=== PATIENT | female | born 1965 | race Caucasian/White ===

== ENCOUNTER 2019-04-15 07:45 | Outpatient (CLI) | payer BC, SELFPAY ==
--- NOTE | ~2019-04-15 | MM_ITS ---
EXAMINATION: MM screening [facility] w [facility] HISTORY: Screening mammogram TECHNIQUE: Craniocaudal and mediolateral oblique 3-D tomosynthesis images were obtained and synthetic 2-D images were generated. CAD analysis was submitted and interpreted. COMPARISON: 04/13/2018, 04/11/2017, 04/07/2016 by lateral digital screening mammogram examinations BREAST PARENCHYMAL COMPOSITION: There are scattered areas of fibroglandular density. FINDINGS: There is no evidence of suspicious mass, calcification, or architectural distortion to sugg est malignancy in either breast. There has been no suspicious interval change. IMPRESSION: 1. No mammographic evidence of malignancy. 2. Recommend routine screening mammography in one year. BI-RADS Category 1: Negative Reviewed, dictated and finalized at location A. TRAINING SPECIALIST
== END 2019-04-15 07:46 | disposition home or self-care (01) ==
LOC: ANHIMG 07:50
PROVIDERS: PCP Internal Medicine; Visit Provider Internal Medicine
DX: Z12.31 Encounter for screening mammogram for malignant neoplasm of breast (principal)
CPT/HCPCS: 77063; 77067

== ENCOUNTER 2020-05-01 07:26 | Outpatient (CLI) | payer OTHER, SELFPAY ==
--- NOTE | ~2020-05-01 | MM_ITS ---
EXAMINATION: MM screening [facility] BI w alonso HISTORY: Screening mammogram TECHNIQUE: Craniocaudal and mediolateral oblique 3-D tomosynthesis images were obtained and synthetic 2-D images were generated. CAD analysis was submitted and interpreted. COMPARISON: 04/15/2019, 04/13/2018, 04/11/2017 BREAST PARENCHYMAL COMPOSITION: There are scattered areas of fibroglandular density. FINDINGS: There is no evidence of suspicious mass, calcification, or architectural distortion to sugg est malignancy in either breast. There has been no suspicious interval change. IMPRESSION: 1. No mammographic evidence of malignancy. 2. Recommend routine screening mammography in one year. BI-RADS Category 1: Negative Reviewed, dictated and finalized at location A. ACT ASSEMBLER
== END 2020-05-01 07:27 | disposition home or self-care (01) ==
LOC: ANHIMG 07:28
PROVIDERS: PCP Internal Medicine; Visit Provider Internal Medicine
DX: Z12.31 Encounter for screening mammogram for malignant neoplasm of breast (principal)
CPT/HCPCS: 77063; 77067

== ENCOUNTER 2021-11-29 08:31 | Outpatient (CLI) | payer OTHER, SELFPAY ==
[2021-11-29 19:06] LABS: Basophils Absolute Auto 0.1 K/mm3 (0.0-0.1); Basophils Percent Auto 1.4 % (0.2-1.2); Eosinophils Absolute Auto 0.2 K/mm3 (0-0.3); Eosinophils Percent Auto 3.8 % (0-4.4); Hematocrit 41.8 % (37.0-47.0); Hemoglobin 13.9 g/dL (12.0-15.0); Immature Granulocyte Absolute 0.02 K/mm3 (0.00-0.031); Immature Granulocyte Percent A 0.4 % (0-0.5); Lymphocytes Absolute Auto 2.13 K/mm3 (0.9-3.2); Lymphocytes Percent Auto 42.8 % (18.3-44.2); Mean Corpuscular HGB Conc 33.3 g/dl (32-36); Mean Corpuscular Hemoglobin 32.3 pg (26-34); Mean Platelet Volume 10.1 fl (7.4-10.4); Monocytes Absolute Auto 0.4 K/mm3 (0.1-0.6); Neutrophils Absolute Auto 2.2 K/mm3 (1.3-6.7); Neutrophils Percent Auto 43.6 % (45.5-73.1); Platelet Count Result 261 k/mm3 (150-375); Red Blood Count 4.31 M/mm3 (4.2-5.4); Red Cell Distribution Width 13.9 % (11.5-14.5)
[2021-11-29 19:25] LABS: Alanine Aminotransferase 20 U/L (6-35); Albumin Level 4.6 g/dL (3.5-5.1); Alkaline Phosphatase 88 U/L (38-126); Anion Gap 11 mmol/L (8-16); Aspartate Amino Transferase 36 U/L (14-36); Bilirubin,Total 0.7 mg/dL (0.2-1.3); Blood Urea Nitrogen 14 mg/dL (7-17); Calcium 9.3 mg/dL (8.4-10.2); Carbon Dioxide 28 mmol/L (22-30); Chloride 102 mmol/L (98-107); Cholesterol 248 mg/dL (0-200); Estimated Glomerular Filt Rate > 60; Glucose 108 mg/dL (65-110); HDL Direct 74 mg/dL; Potassium 4.1 mmol/L (3.4-5.0); Sodium 141 mmol/L (137-145); Triglycerides 75 mg/dL (<150)
[2021-11-29 19:45] LABS: LDL Cholesterol Direct 117 mg/dL
[2021-11-29 21:40] LABS: Vitamin D 25 Hydroxy 47.3 ng/mL
== END 2021-11-29 08:32 | disposition home or self-care (01) ==
LOC: ANHGOSHLAB 08:34
PROVIDERS: PCP Internal Medicine; Visit Provider Internal Medicine
DX: Z13.29 Encounter for screening for other suspected endocrine disorder (principal); Z13.0 Encounter for screening for diseases of the blood and blood-forming organs and certain disorders involving the immune mechanism; Z13.228 Encounter for screening for other metabolic disorders; Z13.220 Encounter for screening for lipoid disorders
CPT/HCPCS: 36415; 80053; 80061; 82306; 85025

== ENCOUNTER 2022-02-25 07:28 | Outpatient (CLI) | payer OTHER, SELFPAY ==
--- NOTE | ~2022-02-25 | MM_ITS ---
EXAMINATION: MM screening [facility] w [facility]onso HISTORY: Screening TECHNIQUE: Craniocaudal and mediolateral oblique 3-D tomosynthesis images were obtained and synthetic 2-D images were generated. CAD analysis was submitted and interpreted. COMPARISON: Comparison to multiple prior studies sequentially, with oldest reviewed study dated 03/23. BREAST PARENCHYMAL COMPOSITION: There are scattered areas of fibroglandular density. FINDINGS: There is no evidence of suspicious mass, calcification, or architectural distortion to sugg est malignancy in either breast. There has been no suspicious interval change. IMPRESSION: 1. No mammographic evidence of malignancy. 2. Recommend routine screening mammography in one year. BI-RADS Category 1: Negative Reviewed, dictated and finalized at location A. EL LINE OPERATOR
== END 2022-02-25 07:29 | disposition home or self-care (01) ==
LOC: ANHIMG 07:31
PROVIDERS: PCP Internal Medicine; Visit Provider Nurse Practitioner Obstetrics & Gynecology
DX: Z12.31 Encounter for screening mammogram for malignant neoplasm of breast (principal)
CPT/HCPCS: 77063; 77067

== ENCOUNTER 2023-03-03 08:18 | Outpatient (CLI) | payer OTHER, SELFPAY ==
[2023-03-03 13:27] LABS: Basophils Percent Auto 0.9 % (0.2-1.2); Eosinophils Absolute Auto 0.2 K/mm3 (0-0.3); Eosinophils Percent Auto 3.7 % (0-4.4); Hematocrit 41.6 % (37.0-47.0); Hemoglobin 13.3 g/dL (12.0-15.0); Lymphocytes Absolute Auto 2.05 K/mm3 (0.9-3.2); Lymphocytes Percent Auto 45.2 % (18.3-44.2); Mean Corpuscular Hemoglobin 31.1 pg (26-34); Mean Corpuscular Volume 97.4 fl (80-100); Mean Platelet Volume 10.1 fl (7.4-10.4); Monocytes Absolute Auto 0.4 K/mm3 (0.1-0.6); Neutrophils Absolute Auto 1.9 K/mm3 (1.3-6.7); Neutrophils Percent Auto 41.2 % (45.5-73.1); Platelet Count Result 256 k/mm3 (150-375); Red Blood Count 4.27 M/mm3 (4.2-5.4); Red Cell Distribution Width 13.7 % (11.5-14.5); White Blood Count 4.5 K/mm3 (4.5-10.0)
[2023-03-03 13:30] LABS: Alanine Aminotransferase 24 U/L (6-35); Albumin Level 4.5 g/dL (3.5-5.1); Alkaline Phosphatase 85 U/L (38-126); Anion Gap 8 mmol/L (8-16); Aspartate Amino Transferase 34 U/L (14-36); Bilirubin,Total 0.7 mg/dL (0.2-1.3); Blood Urea Nitrogen 16 mg/dL (7-17); Calcium 9.4 mg/dL (8.4-10.2); Carbon Dioxide 27 mmol/L (22-30); Chloride 105 mmol/L (98-107); Cholesterol 269 mg/dL (0-200); Estimated Glomerular Filt Rate > 60; Glucose 92 mg/dL (65-110); HDL Direct 90 mg/dL; Potassium 4.4 mmol/L (3.4-5.0); Sodium 140 mmol/L (137-145); Triglycerides 87 mg/dL (<150)
[2023-03-03 13:42] LABS: LDL Cholesterol Direct 126 mg/dL
[2023-03-03 14:23] LABS: Vitamin D 25 Hydroxy 31.3 ng/mL
== END 2023-03-03 08:19 | disposition home or self-care (01) ==
LOC: ANHGOSHLAB 08:19
PROVIDERS: PCP Internal Medicine; Visit Provider Clinical Nurse Specialist
DX: E55.9 Vitamin D deficiency, unspecified (principal); Z13.220 Encounter for screening for lipoid disorders; Z13.29 Encounter for screening for other suspected endocrine disorder; Z13.228 Encounter for screening for other metabolic disorders; Z13.0 Encounter for screening for diseases of the blood and blood-forming organs and certain disorders involving the immune mechanism
CPT/HCPCS: 36415; 80053; 80061; 82306; 85025

== ENCOUNTER 2023-06-06 09:22 | Outpatient (CLI) | payer OTHER, SELFPAY ==
--- NOTE | ~2023-06-06 | MM_ITS ---
EXAMINATION: MM screening [facility] w [facility] HISTORY: Screening TECHNIQUE: Craniocaudal and mediolateral oblique 3-D tomosynthesis images were obtained and synthetic 2-D images were generated. CAD analysis was submitted and interpreted. COMPARISON: Comparison to multiple prior studies sequentially, with oldest reviewed study dated 04/2016. BREAST PARENCHYMAL COMPOSITION: Dense: The breasts are heterogeneously dense, which may obscure small masses FINDINGS: There is no evidence of suspicious mass, calcification, or architectural distortion to sugg est malignancy in either breast. There has been no suspicious interval change. IMPRESSION: 1. No mammographic evidence of malignancy. 2. Recommend routine screening mammography in one year. BI-RADS Category 1: Negative Reviewed, dictated and finalized at location A.
== END 2023-06-06 09:23 | disposition home or self-care (01) ==
PROVIDERS: PCP Internal Medicine; Visit Provider Nurse Practitioner Obstetrics & Gynecology
DX: Z12.31 Encounter for screening mammogram for malignant neoplasm of breast (principal)
CPT/HCPCS: 77063; 77067

== ENCOUNTER 2024-03-17 11:18 | Emergency (ER) | payer BC, SELFPAY ==
--- NOTE | ~2024-03-17 | XR_ITS ---
XR chest 2V DATE: 03/17/2024 11:35 INDICATION: Shortness of breath TECHNIQUE: PA and lateral views COMPARISON: None FINDINGS: Normal heart size. No hilar or mediastinal enlargement. No pulmonary infiltrate or consolidation, pleural effusion or pulmonary vascular congestion or pneumo thorax is detected. Included skeletal structures are unremarkable other than minimal degenerative spurring and scoliosis of the thoracic spine. IMPRESSION: No active cardiopulmonary disease Reviewed, dictated and finalized at location A. Y CHILDHOOD AIDE CLASSROOM
[2024-03-17 11:21] VITALS: BP 115/79; PULSE 63; RESP 16; TEMP 36.4; O2SAT 100
--- NOTE | 2024-03-17 11:27 | ECG_ITS ---
Test Date: 2024-03-17 11:30:14 Measurements Intervals [place] Rate: 62 P: 67 WV: 153 QRS: -44 QRSD: 82 T: 59 QT: 428 QTc: 436 Interpretive Statements SINUS RHYTHM MARKED LEFT AXIS DEVIATION [QRS AXIS < -30] LOW QRS VOLTAGE IN PRECORDIAL LEADS [QRS DEFLECTION < 1.0 mV IN CHEST LEADS] PATTERN CONSISTENT WITH PULMONARY DISEASE Compared to ECG 03/17/2024 10:49:45 Low QRS voltage now present Electronically Signed On 03-17-2024 15:33:45 KNIT GOODS MENDER by Darek Pinto M.D.
[2024-03-17 11:37] LABS: Basophils Absolute Auto 0.1 K/mm3 (0.0-0.1); Basophils Percent Auto 0.9 % (0.2-1.2); Eosinophils Absolute Auto 0.1 K/mm3 (0-0.3); Eosinophils Percent Auto 2.2 % (0-4.4); Hematocrit 40.3 % (37.0-47.0); Hemoglobin 13.5 g/dL (12.0-15.0); Immature Granulocyte Absolute 0.01 K/mm3 (0.00-0.031); Immature Granulocyte Percent A 0.2 % (0-0.5); Lymphocytes Absolute Auto 2.38 K/mm3 (0.9-3.2); Lymphocytes Percent Auto 43.3 % (18.3-44.2); Mean Corpuscular HGB Conc 33.5 g/dl (32-36); Mean Corpuscular Hemoglobin 30.9 pg (26-34); Mean Corpuscular Volume 92.2 fl (80-100); Mean Platelet Volume 9.3 fl (7.4-10.4); Monocytes Absolute Auto 0.4 K/mm3 (0.1-0.6); Monocytes Percent Auto 7.6 % (2.6-8.5); Neutrophils Absolute Auto 2.5 K/mm3 (1.3-6.7); Neutrophils Percent Auto 45.8 % (45.5-73.1); Platelet Count Result 236 k/mm3 (150-375); Red Blood Count 4.37 M/mm3 (4.2-5.4); Red Cell Distribution Width 13.3 % (11.5-14.5); White Blood Count 5.5 K/mm3 (4.5-10.0)
[2024-03-17 11:56] LABS: Alanine Aminotransferase 19 U/L (6-35); Albumin Level 4.5 g/dL (3.5-5.1); Alkaline Phosphatase 86 U/L (38-126); Anion Gap 6 mmol/L (4-12); Aspartate Amino Transferase 24 U/L (14-36); Bilirubin,Total 0.7 mg/dL (0.2-1.3); Blood Urea Nitrogen 18 mg/dL (7-17); Carbon Dioxide 26 mmol/L (22-30); Chloride 106 mmol/L (98-107); Estimated CRCL calculation 66 ml/min; Estimated Glomerular Filt Rate > 60; Glucose 105 mg/dL (65-110); Potassium 4.2 mmol/L (3.4-5.0); Sodium 138 mmol/L (137-145)
--- NOTE | 2024-03-17 14:50 | ED.SOB ---
HPI - SOB/Dyspnea General Chief Complaint: Shortness of Breath/Dyspnea <Chari Forte PA-C - Last Filed: 03/17/24 22:46> Stated Complaint: sob <Chari Forte PA-C - Last Filed: 03/17/24 22:46> Time Seen by Provider: 03/17/24 14:50 <Chari Forte PA-C - Last Filed: 03/17/24 22:46> Focused HPI: This is a 58 year old female that presents to the ER for shortness of breath. Ongoing over the last several weeks. Worse with exertion. Became worse the last day or two which prompted her to be seen. She has not been evaluated for this complaint yet. Denies chest pain or lower extremity edema. GENERAL: Well-appearing, well-nourished, and in no acute distress. HEAD: Normocephalic, atraumatic. CHEST: Clear to auscultation. ?No respiratory distress. HEART: Regular rate and rhythm.? NEURO: ?Alert and oriented x3. Patient screened in triage and initial orders placed.? ?Additional care and disposition to be based upon?diagnostic testing and treatment. <Chari Forte PA-C - Last Filed: 03/17/24 22:46> Source: patient and other ([facility]) <Yanna Gibbons MD - Last Filed: 03/18/24 23:17> History of Present Illness HPI Narrative: Agree with the above with following additions/corrections: Notified in advance of patient's arrival by nurse practitioner at urgent care who notes the patient had been short of breath for the past 1 month although particularly worse over the last 2 days. Patient had described breathlessness to them particularly exertional but occasionally at rest. She was noted to be hypotensive at 92/70 at urgent care but with a heart rate of 60 beats per minute. They had performed an EKG which was interpreted as sinus rhythm. She was sent to the emergency department for evaluation of PE or symptomatic anemia; arrived by private vehicle. Patient states the shortness of breath has been occurring intermittently but seemed to get worse yesterday. She denies that it is particularly exertional as she states that it not infrequently occurs while at rest. No chest pain. Patient denies any cough or fever. She has no underlying respiratory conditions such as asthma, COPD, or history of pneumonia, or bronchitis. No history of cardiac issues. She does describe a sense of ear fullness bilaterally, like I have been on an airplane. She started wearing hearing aids in both ears a few months ago and did try removing these but without any change. Nevertheless, she denies any other symptoms of congestion leg nasal congestion or rhinorrhea. Denies any edema, bilaterally or unilaterally. Has a PCP. <Yanna Gibbons MD - Last Filed: 03/18/24 23:17> Related Data Home Medications: Home Medications ?Medication ?Instructions ?Recorded ?Confirmed ?Last Taken ?Type No Home Medications 03/13/23 03/17/24 Unknown History <Chari Forte PA-C - Last Filed: 03/17/24 22:46> Allergies/Adverse Reactions: Allergies Allergy/AdvReac Type Severity Reaction Status Date / Time No Known Allergies Allergy Verified 03/17/24 10:12 <Chari Forte PA-C - Last Filed: 03/17/24 22:46> Review of Systems Review of Systems: All systems reviewed & are unremarkable except as noted in HPI and below <Chari Forte PA-C - Last Filed: 03/17/24 22:46> [facility] Past Medical History Medical History: Medical History Wears hearing aid in both ears Lipoma removed Vitamin D deficiency <Chari Forte PA-C - Last Filed: 03/17/24 22:46> Surgical History Surgical History: Surgical History Delivery by section <Chari Forte PA-C - Last Filed: 03/17/24 22:46> Family History Family History: Family History Father Myocardial infarction Sibling Hydrocephalus <Chari Forte PA-C - Last Filed: 03/17/24 22:46> Social History Social History: Social History Smoking status: Never smoker Alcohol intake: never Do You Feel Safe in your Home?: Yes Lack of Transportation: No Lack of Food: Never True Current Housing: I Have Housing Concerned About Future Housing: No Difficulty Paying Gas/Electric Bills: No Difficulty Paying for Meds: No Currently Unemployed: No Education: Bachelor's Degree Difficulty w/ Childcare or Family Care: No <Chari Forte PA-C - Last Filed: 03/17/24 22:46> Exam Narrative: GENERAL: Well-appearing, well-nourished, and in no acute distress. HEAD: Normocephalic, atraumatic. EYES: Non injected, non icteric ENT: Nares clear, no rhinorrhea or epistaxis. Patient removes bilateral hearing aids briefly for exam: Cerumen on the left although it does not obscure the TM and appears to sit on a base of slight erythema in the external auditory canal. Small effusion behind the right tympanic membrane however without bulging or erythema. NECK: Supple. CHEST: Speaking in full sentences. No respiratory distress. Lungs clear to auscultation bilaterally without wheezes, crackles, or areas of focal consolidation. Good air movement throughout. No stridor. HEART: Regular rate and rhythm. . ABDOMEN: Soft, nondistended. EXTREMITIES: Normal range of motion. No lower extremity edema. SKIN: Warm, dry, no rash. NEURO: No focal deficits. Alert and oriented x3. PSYCH: Normal mood and affect. <Yanna Gibbons MD - Last Filed: 03/18/24 23:17> Course Vital Signs Vital signs: Vital Signs Temperature 97.5 F L 03/17/24 11:21 Pulse Rate 63 03/17/24 11:21 Respiratory Rate 16 03/17/24 11:21 Blood Pressure 115/79 03/17/24 11:21 Pulse Oximetry 100 03/17/24 11:21 Oxygen Delivery Room Air 03/17/24 11:21 Temperature 97.6 F 03/17/24 15:59 Pulse Rate 78 03/17/24 18:28 Respiratory Rate 15 03/17/24 18:28 Blood Pressure 109/76 03/17/24 18:28 Pulse Oximetry 100 03/17/24 18:28 Oxygen Delivery Room Air 03/17/24 15:59 <Chari Forte PA-C - Last Filed: 03/17/24 22:46> Vital Signs Temperature 97.5 F L 03/17/24 11:21 Pulse Rate 63 03/17/24 11:21 Respiratory Rate 16 03/17/24 11:21 Blood Pressure 115/79 03/17/24 11:21 Pulse Oximetry 100 03/17/24 11:21 Oxygen Delivery Room Air 03/17/24 11:21 Temperature 97.6 F 03/17/24 15:59 Pulse Rate 78 03/17/24 18:28 Respiratory Rate 15 03/17/24 18:28 Blood Pressure 109/76 03/17/24 18:28 Pulse Oximetry 100 03/17/24 18:28 Oxygen Delivery Room Air 03/17/24 15:59 <Yanna Gibbons MD - Last Filed: 03/18/24 23:17> MDM - SOB/Dyspnea MDM Narrative Medical decision making narrative: Patient presents with with shortness of breath occurring intermittently over the past 1 month with worsening over the past 1 day. No other symptoms except for bilateral ear fullness. No underlying respiratory conditions. In the emergency department she is afebrile with vital signs within normal limits. Physical exam is without obvious findings. Cbc unremarkable. Troponin negative, D dimer normal, viral swab negative. Patient does ambulatory pulse ox where she is noted to desaturate to 92% however without a clear wave form and patient stated that she was asymptomatic during this, feeling much better. We did discuss that her workup has not identified a clear etiology but recommended follow up with her PCP; she confirms she has one. Discharged in stable condition. <Yanna Gibbons MD - Last Filed: 03/18/24 23:17> Differential Diagnosis Differential diagnosis: Likely congestive heart failure, community acquired pneumonia, pulmonary embolism and other (Symptomatic anemia, pulmonary fibrosis/interstitial lung disease; pulmonary hypertension; acute viral syndrome; ACS) <Yanna Gibbons MD - Last Filed: 03/18/24 23:17> Lab Data Attestation: I reviewed the patient's lab results. <Yanna Gibbons MD - Last Filed: 03/18/24 23:17> Result diagrams: 03/17/24 11:31 03/17/24 11:31 <Chari Forte PA-C - Last Filed: 03/17/24 22:46> Labs: Lab Results 03/17/24 03/17/24 Range/Units 11:31 16:32 WBC 5.5 (4.5-10.0) K/mm3 RBC 4.37 (4.2-5.4) M/mm3 Hgb 13.5 (12.0-15.0) g/dL Hct 40.3 (37.0-47.0) % MCV 92.2 (80-100) fl MCH 30.9 (26-34) pg MCHC 33.5 (32-36) g/dl RDW 13.3 (11.5-14.5) % Plt Count 236 (150-375) k/mm3 MPV 9.3 (7.4-10.4) fl Immature Gran % (Auto) 0.2 (0-0.5) % Neut % (Auto) 45.8 (45.5-73.1) % Lymph % (Auto) 43.3 (18.3-44.2) % Coos % (Auto) 7.6 (2.6-8.5) % Eos % (Auto) 2.2 (0-4.4) % Baso % (Auto) 0.9 (0.2-1.2) % Lymph # (Auto) 2.38 (0.9-3.2) K/mm3 Coos # (Auto) 0.4 (0.1-0.6) K/mm3 Eos # (Auto) 0.1 (0-0.3) K/mm3 Baso # (Auto) 0.1 (0.0-0.1) K/mm3 Abs Immat Gran (auto) 0.01 (0.00-0.031) K/mm3 Absolute Neuts (auto) 2.5 (1.3-6.7) K/mm3 Absolute Nucleated RBC 0.000 (0.0-0.012) K/mm3 Nucleated RBC % 0.0 (0.0-0.2) % D-Dimer < 0.27 (<0.48) ug/mL Sodium 138 (137-145) mmol/L Potassium 4.2 (3.4-5.0) mmol/L Chloride 106 (98-107) mmol/L Carbon Dioxide 26 (22-30) mmol/L Anion Gap 6 (4-12) mmol/L BUN 18 H (7-17) mg/dL Creatinine 0.77 (0.7-1.0) mg/dL Estim Creat Clear Calc 66 ml/min Estimated GFR > 60 (59 - ) Glucose 105 (65-110) mg/dL Calcium 9.0 (8.4-10.2) mg/dL Total Bilirubin 0.7 (0.2-1.3) mg/dL AST 24 (14-36) U/L ALT 19 (6-35) U/L Alkaline Phosphatase 86 (38-126) U/L Troponin I < 0.012 (0.000-0.034) ng/mL NT-Pro-B Natriuret Pep 50 (19.9-100) pg/mL Total Protein 8.0 (6.3-8.2) g/dL Albumin 4.5 (3.5-5.1) g/dL Influenza A (RT-PCR) Negative (Negative) Influenza B (RT-PCR) Negative (Negative) RSV (RT-PCR) Negative (Negative) SARS-CoV-2 RNA (RT-PCR) Negative (Negative) <Chari Forte PA-C - Last Filed: 03/17/24 22:46> Lab Results 03/17/24 03/17/24 Range/Units 11:31 16:32 WBC 5.5 (4.5-10.0) K/mm3 RBC 4.37 (4.2-5.4) M/mm3 Hgb 13.5 (12.0-15.0) g/dL Hct 40.3 (37.0-47.0) % MCV 92.2 (80-100) fl MCH 30.9 (26-34) pg MCHC 33.5 (32-36) g/dl RDW 13.3 (11.5-14.5) % Plt Count 236 (150-375) k/mm3 MPV 9.3 (7.4-10.4) fl Immature Gran % (Auto) 0.2 (0-0.5) % Neut % (Auto) 45.8 (45.5-73.1) % Lymph % (Auto) 43.3 (18.3-44.2) % Coos % (Auto) 7.6 (2.6-8.5) % Eos % (Auto) 2.2 (0-4.4) % Baso % (Auto) 0.9 (0.2-1.2) % Lymph # (Auto) 2.38 (0.9-3.2) K/mm3 Coos # (Auto) 0.4 (0.1-0.6) K/mm3 Eos # (Auto) 0.1 (0-0.3) K/mm3 Baso # (Auto) 0.1 (0.0-0.1) K/mm3 Abs Immat Gran (auto) 0.01 (0.00-0.031) K/mm3 Absolute Neuts (auto) 2.5 (1.3-6.7) K/mm3 Absolute Nucleated RBC 0.000 (0.0-0.012) K/mm3 Nucleated RBC % 0.0 (0.0-0.2) % D-Dimer < 0.27 (<0.48) ug/mL Sodium 138 (137-145) mmol/L Potassium 4.2 (3.4-5.0) mmol/L Chloride 106 (98-107) mmol/L Carbon Dioxide 26 (22-30) mmol/L Anion Gap 6 (4-12) mmol/L BUN 18 H (7-17) mg/dL Creatinine 0.77 (0.7-1.0) mg/dL Estim Creat Clear Calc 66 ml/min Estimated GFR > 60 (59 - ) Glucose 105 (65-110) mg/dL Calcium 9.0 (8.4-10.2) mg/dL Total Bilirubin 0.7 (0.2-1.3) mg/dL AST 24 (14-36) U/L ALT 19 (6-35) U/L Alkaline Phosphatase 86 (38-126) U/L Troponin I < 0.012 (0.000-0.034) ng/mL NT-Pro-B Natriuret Pep 50 (19.9-100) pg/mL Total Protein 8.0 (6.3-8.2) g/dL Albumin 4.5 (3.5-5.1) g/dL Influenza A (RT-PCR) Negative (Negative) Influenza B (RT-PCR) Negative (Negative) RSV (RT-PCR) Negative (Negative) SARS-CoV-2 RNA (RT-PCR) Negative (Negative) <Yanna G. Gibbons, MD - Last Filed: 03/18/24 23:17> Imaging Data Radiologist's impression: ITS Impressions Chest X-Ray 03/17/24 11:45 IMPRESSION: No active cardiopulmonary disease <Chari Forte PA-C - Last Filed: 03/17/24 22:46> ECG Data EKG #1: Attestation: I personally reviewed and interpreted this ECG as follows: <Yanna Gibbons MD - Last Filed: 03/18/24 23:17> ECG completion date: 03/17/24 <Yanna Gibbons MD - Last Filed: 03/18/24 23:17> ECG completion time: 11:30 <Yanna Gibbons MD - Last Filed: 03/18/24 23:17> Interpretation: Normal sinus rhythm at a rate of 62 beats per minute. TX interval 153. QRS 82. QT/QTC 428/433. T-wave inversion in lead 3 but otherwise upright in normal in contiguous inferior leads 2 and AVF. No other T-wave inversions. Left axis deviation (QRS is positive with dominant R wave in Lead I; QRS is negative with dominant S wave in leads II, III, and aVF) given positive QRS in 1 and negative QRS in leads 3 and AVF and predominant negative in lead 2. <Yanna Gibbons MD - Last Filed: 03/18/24 23:17> Critical Care Time Critical Care Time Critical Care Time: No <Chari Forte PA-C - Last Filed: 03/17/24 22:46> Discharge Plan Discharge Clinical Impression: Sensation of fullness in both ears, Shortness of breath <HARRIET Fajardo Last Filed: 03/17/24 22:46> Patient Disposition: Home, Self-Care <Chari Forte PA-C - Last Filed: 03/17/24 22:46> Condition: Stable <HARRIET Fajardo Last Filed: 03/17/24 22:46> Instructions: Antibiotic Form, Earache (ED), Shortness of Breath (ED) <Chari Forte PA-C - Last Filed: 03/17/24 22:46> Additional Instructions: As we discussed, no clear etiology as cause of your symptoms. Please follow-up with your primary care physician. Return to the emergency department with any new or worsening symptoms. <Chari Forte PA-C - Last Filed: 03/17/24 22:46> Patient Language: Latvian <Chari Forte PA-C - Last Filed: 03/17/24 22:46> Prescriptions: No Action No Home Medications <Chari Forte PA-C - Last Filed: 03/17/24 22:46> Follow-up/Referrals: Juan Jose Ho, DO [Primary Care Provider] - <Chari Forte PA-C - Last Filed: 03/17/24 22:46> Stand Alone Forms: Work/School Release IP <Chari Forte PA-C - Last Filed: 03/17/24 22:46> Time of Disposition: 18:21 <Chari Forte PA-C - Last Filed: 03/17/24 22:46> 18:21 <Yanna Gibbons MD - Last Filed: 03/18/24 23:17>
[2024-03-17 15:59] VITALS: BP 108/73; PULSE 65; RESP 15; TEMP 36.4; O2SAT 100
[2024-03-17 16:44] VITALS: BP 109/75; PULSE 79; RESP 18; O2SAT 93
[2024-03-17 16:49] LABS: Troponin I < 0.012 ng/mL (0.000-0.034)
[2024-03-17 17:05] LABS: D Dimer < 0.27 ug/mL (<0.48)
[2024-03-17 17:12] LABS: NT Pro B Type Natriuretic Pept 50 pg/mL (19.9-100)
[2024-03-17 17:18] LABS: Influenza A QL RT-PCR Negative (Negative); Influenza B QL RT-PCR Negative (Negative); RSV RNA, RT-PCR Negative (Negative); SARS-CoV-2 RNA PCR Negative (Negative)
[2024-03-17 18:28] VITALS: BP 109/76; PULSE 78; RESP 15; O2SAT 100
== END 2024-03-17 18:29 | disposition home or self-care (01) ==
PROVIDERS: Emergency Medicine; Physician Assistant; Emergency Provider Student in an Organized Health Care Education/Training Program; PCP Internal Medicine
DX: R06.00 Dyspnea, unspecified (principal); I95.9 Hypotension, unspecified; Z20.822 Contact with and (suspected) exposure to COVID-19
CPT/HCPCS: 36415; 71046; 80053; 83880; 84484; 85025; 85380; 87637; 93005; 99284

== ENCOUNTER 2024-03-26 15:03 | Outpatient (CLI) | payer BC, SELFPAY ==
--- NOTE | ~2024-03-26 | CT_ITS ---
EXAMINATION:CT diagnostic chest w con DATE: 03/26/2024 15:34 INDICATION: Dyspnea, unspecified. TECHNIQUE: Computed tomography (CT) of the chest was performed with 75 mL Omnipaque 350 intravenous c ontrast. Automated exposure control and iterative reconstruction technique were employed. The dose-le ngth product (DLP) was 167.58 mGy-cm. COMPARISON: Chest 2 views 03/17/2024 FINDINGS: The lungs demonstrate mild atelectasis. No pleural effusion. The heart size is normal. No p ericardial effusion. There is ectasia of ascending aorta measuring 4.9 cm. There is mild thoracic spo ndylosis. IMPRESSION: 1. 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 Reviewed, dictated and finalized at location B. GER SOURCING
--- OUTSIDE RECORDS SUMMARY | 2024-03-28 19:30 | XMS_ITS | Data Portability ---
Author Organization [facility] Address [address] [place] [address] Care Team Providers Care Plating Technician Name Role Phone ACE BEAUCHAMP Primary Care Provider Assessment Encounter Date Assessment Date Assessment LastModified by Organization Details LastModified Time 12/16/2021 12/16/2021 Annual gynecological exam performed. Patient will come back in a year unless there are new symptoms. Not available 12/16/2021 15:23:40 12/23/2022 12/23/2022 Annual gynecological exam performed. Patient will come back in a year unless there are new symptoms. [email or web address] Not available 12/23/2022 13:24:10 12/26/2023 12/26/2023 Annual gynecological exam performed. Patient will come back in a year unless there are new symptoms. [email or web address] Not available 12/26/2023 17:22:41 Plan of Treatment Reminders Order Date Submit Date Provider Last Modified By Organization Details Last Modified Time Details Appointments None recorded. Lab hormone panel, serum or plasma 2021 022 [facility] (Lab), [address], [place], [address], 03:05:23 hormone panel, serum or plasma 2022 023 [facility] (Lab), [address], [place], [address], 3 06:56:22 Referral None recorded. Procedures None recorded. Surgeries None recorded. Imaging US, pelvis, complete 2021 022 [address], [address], [place], [address], 2 16:04:59 US, pelvis 2021 022 [email or web address] [address], [address], [place], [address], 2 22:18:15 US, transvagina l 2021 022 [email or web address] [facility], [address], [place], [address], 22:18:15 MAMMO, screening, bilateral [address] [facility], [address], [address], [place], [address], 3 10:26:04 Medication Orders None recorded. Patient TargetsNo targets recorded. Patient InstructionsNo instructions recorded. Reason for Referral None Reported. Results Created Date Observation Date Name Description Value Unit Range Abnormal Flag Note LastModifiedBy Organization Detail LastModifiedTime 12/17/1912/16/2021 FSH, LH, ESTRA DIOL estradiol <5.0 pg/mL This assay was perfo rmed using [employer] n reage nts and test kits. Value s obtai john with other assay metho ds or kits canno t be used inter [facility] . Femal e Estra diol Range s: Folli cular phase 12.4- 233 pg/mL Ovula tion phase 41.0- 398 pg/mL Lutea l phase 22.3- 341 pg/mL Postm enopa usal< 5-138 pg/mL Healt hy Pregn ant Women 1st Trime ster1 54-32 43 pg/mL 2nd Trime ster1 561-2 1280 pg/mL 3rd Trime ster8 525-> 20345 pg/mL Not Available [facility] [address] [place], [address], 12/17/2021 03:05:20 12/17/19 22 12/16/2021 FSH, LH, ESTRA DIOL FSH 58.7 mIU/m L This assay was perfo rmed using [employer] reage nts and test kits. Value s obtai john with other assay metho ds or kits canno t be used inter [facility] . Femal es Folli cular : 3.5-1 2.5 mIU/m L Ovula tion: 4.7-2 1.5 mIU/m L Lutea l: 1.7-7 .7 mIU/m L Postm enopa use: 25.8- 134.8 mIU/m L Not Available [facility] [address] [place] [address], [address], 12/17/2021 03:05:20 12/17/19 22 12/16/2021 FSH, LH, ESTRA DIOL LH 26.7 mIU/m L This assay was perfo rmed using [employer] reage nts and test kits. Value s obtai john with other assay metho ds or kits canno t be used inter [facility] . Femal es Mid-F ollic ular: 2.4-1 2.6 mIU/m L Mid-C ycle: 14.0- 95.6 mIU/m L Mid-L uteal : 1.0-1 1.4 mIU/m L Postm enopa use: 7.7-5 8.5 mIU/m L Not Available [facility] [address] [place], [address], 12/17/2021 03:05:20 12/17/19 22 12/16/2021 IMAGE GUIDE D PAP AND HPV REGAR DLESS image guided Pap, HPV regardless of Pap result SEE RESULT S BELOW CASE REPOR T: Cytol ogy Gynec ologi lola Repor t Case: [id number] Autho kailey carballo Provi ersi: Fried Charlie gonzalez Colle cted: 12/16 1740 [employer] Order ing Locat ion: [place] Patho logmukul Recei ann-marie: 12/17 0301 First Scree n: Rowdy Johnson, CT Speci men: Scree antonia Pap - Image d, Cervi x STATE MENT OF ADEQU ACY: Satis facto ry for evalu ation Trans forma tion zone compo nent prese nt FINAL DIAGN OSIS: Negat pamela for Intra epith elial Lesio n or Sandhya moreira (NIL) . Shift in pelon sugge stive of bacte rial vagin osis. Elect nanci mckeon elis d by Rowdy Johnson CT on 12/22 at 10:17 AM ----- ----- ----- ----- ----- ----- ----- ----- ----- ----- ----- ----- ----- ----- ----- ----- ----- ---- HPV RESUL TS: HPV mRNA E6/E7 : No HPV mRNA Detec mary NOTE: This high risk HPV mRNA assay detec ts fourt een high- risk HPV types (16, 18, 31, 33, 35, 39, 45, 51, 52, 56, 58, 59, 66, 68) witho ut diffe renti ation . COMME NT: Note: This speci men was revie wed by a Cytot echno logis t and/o r Patho logis t (as indic ated in this repor t) after evalu ation using the Thinp rep Imagi ng Syste m. CLINI LOLA INFOR MATIO N: Menst rual Statu s: LMP (if appli cable ): Clini lola Histo ry/Pr eviou s Pap: Type of Neopl galdino (if appli cable ): Signi fican t Clini lola Findi ngs: Other Histo ry: Hormo cielo (if appli cable ): PAP EDUCA BETTYE L NOTE: The Pap Test is a scree antonia test with an inher ent false negat pamela rate. Liqui d-bas ed sampl ing july decre ase, but will not elimi shreya, false negat pamela resul ts. A negat pamela resul t does not precl ude the prese nce and/o r devel opmen t of disea se, since the prese nce of abnor mal cells in the sampl e depen ds on the locat ion of the lesio n and sampl ing techn ique. Piotr nued regul ar scree antonia is the best metho d of cance r preve ntion . If repor mary cytol ogic findi ng do not corre late with physi lola and/o r histo rical findi ngs, furth er inves tigat ion is recom kita d, as clini segundo montalvo nted. Not Available [facility] [address] [place], [address], 12/22/2021 11:20:32 08/18/19 23 08/17/2022 FSH, LH, ESTRA DIOL estradiol <5.0 pg/mL This assay was perfo rmed using [employer] reage nts and test kits. Value s obtai john with other assay metho ds or kits canno t be used inter [facility] . Femal e Estra diol Range s: Folli cular phase 12.4- 233 pg/mL Ovula tion phase 41.0- 398 pg/mL Lutea l phase 22.3- 341 pg/mL Postm enopa usal< 5-138 pg/mL Healt hy Pregn ant Women 1st Trime ster1 54-32 43 pg/mL 2nd Trime ster1 561-2 1280 pg/mL 3rd Trime ster8 525-> 29071 pg/mL Not Available [facility] (Lab) [address], [place], [address], 08/18/2022 06:56:22 08/18/19 23 08/17/2022 FSH, LH, ESTRA DIOL FSH 68.5 mIU/m L This assay was perfo rmed using [employer] reage nts and test kits. Value s obtai john with other assay metho ds or kits canno t be used inter [facility] . Femal es Folli cular : 3.5-1 2.5 mIU/m L Ovula tion: 4.7-2 1.5 mIU/m L Lutea l: 1.7-7 .7 mIU/m L Postm enopa use: 25.8- 134.8 mIU/m L Not Available [facility] (Lab) [address] [facility], [place], [address], 08/18/2022 06:56:22 08/18/19 23 08/17/2022 FSH, LH, ESTRA DIOL LH 29.5 mIU/m L This assay was perfo rmed using [employer] reage nts and test kits. Value s obtai john with other assay metho ds or kits canno t be used inter [facility] . Femal es Mid-F ollic ular: 2.4-1 2.6 mIU/m L Mid-C ycle: 14.0- 95.6 mIU/m L Mid-L uteal : 1.0-1 1.4 mIU/m L Postm enopa use: 7.7-5 8.5 mIU/m L Not Available [facility] (Lab) [address] [place], [address], 08/18/2022 06:56:22 12/24/19 23 12/23/2022 IMAGE GUIDE D PAP AND HPV REGAR DLESS image guided Pap, HPV regardless of Pap result SEE RESULT S BELOW CASE REPOR T: Cytol ogy Gynec ologi lola Repor t Case: [id number] Autho kailey g Provi eris: Charlie Linda Colle cted: 12/23 1510 [employer] Order ing Locat ion: [place] Patho logy Recei ann-marie: 12/24 0220 First Scree n: Lis Yu ay, CT Speci men: Scree antonia Pap - Image d, Cervi x STATE MENT OF ADEQU ACY: Satis facto ry for evalu ation Trans forma tion zone compo nent prese nt FINAL DIAGN OSIS: Negat pamela for Intra epith elial Lesio n or Sandhya moreira (NIL) . Shift in pelon sugge stive of bacte rial vagin osis. Elect nanci gillis d by Lis Yu, CT on 12/28 at 8:08 AM ----- ----- ----- ----- ----- ----- ----- ----- ----- ----- ----- ----- ----- ----- ----- ----- ----- ---- HPV RESUL TS: HPV mRNA E6/E7 : No HPV mRNA Detec mary NOTE: This high risk HPV mRNA assay detec ts fourt een high- risk HPV types (16, 18, 31, 33, 35, 39, 45, 51, 52, 56, 58, 59, 66, 68) witho ut diffe renti ation . COMME NT: Note: Slide scree john paulina ferrara due to rejec tion by Thinp rep Imagi ng Syste m CLINI LOLA INFOR MATIO N: Menst rual Statu s: LMP (if appli cable ): Clini lola Histo ry/Pr eviou s Pap: Type of Neopl galdino (if appli cable ): Signi fican t Clini lola Findi ngs: Other Histo ry: Hormo cielo (if appli cable ): PAP EDUCA BETTYE L NOTE: The Pap Test is a scree antonia test with an inher ent false negat pamela rate. Liqui d-bas ed sampl ing may decre ase, but will not elimi shreya, false negat pamela resul ts. A negat pamela resul t does not precl ude the prese nce and/o r devel opmen t of disea se, since the prese nce of abnor mal cells in the sampl e depen ds on the locat ion of the lesio n and sampl ing techn ique. Piotr nued regul ar scree antonia is the best metho d of cance r preve ntion . If repor mary cytol ogic findi ng do not corre late with physi lola and/o r histo rical findi ngs, furth er inves tigat ion is recom kita d, as clini segundo neried. Not Available [facility] (Lab) [address], [place], [address], 12/28/2022 09:12:19 12/22/19 22 12/21/2021 US, pelvi s No observ ation record ed. [email or web address] [facility] [address], [place], [address], 12/21/2021 15:49:53 12/22/1912/21/2021 US, trans vagin al No observ ation record ed. [email or web address], [place], [address], 12/21/2021 15:49:44 12/22/19 22 12/21/2021 US, pelvi s No observ ation record ed. [facility] [address], [place], [address], 01/02/2022 10:34:53 02/26/20 22 02/25/2022 MAMMO , scree antonia, bilat eral No observ ation record ed. [facility] [address], [place], [address], 03/04/2022 14:03:33 Result Notes None recorded. Problems Name Problem SNOMED Code Status Onset Date Resolution Date Notes Provider Name and Address Organization Details Recorded Time Finding of pattern of menstrua l cycle 222112031 Completed 201612/09/2020 Excessive and frequent menstruat ion with irregular cycle;Pra ctice ID: [id number] Marilou cotto [facility] 15:35:36 Polyp of corpus uteri [id number] Completed 201612/09/2020 Polyp of corpus uteri;Pra ctice ID: [id number] Marilou cotto [facility] 15:35:43 Insertio n of intraute rine contrace ptive device Completed 201612/09/2020 Encounter for insertion of intrauter ine contracep tive device;Pr actice ID: [id number] Marilou Cabrera [facility] 15:35:38 Pregnanc y test negative [id number] Completed 201612/09/2020 Encounter for test, result negative; Practice ID: [id number] Marilou Cabrera [facility] 15:35:45 Surveill ance of contrace ption Completed 201612/09/2020 Encounter for surveilla nce of contracep tives, unspecifi ed;Practi ce ID: [id number] Marilou Cabrera [facility] 15:35:54 Cyst of ovary Completed 201612/09/2020 Unspecifi ed ovarian cyst, unspecifi ed side;Hiram rded Elsewhere : No Locati on: [facility] So urce: EHR Chron ic: N Practic e ID: 0001 Bill able Time: 10:02:07 AM Marilou Cabrera [facility] 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 15:35:52 Screenin g for malignan t neoplasm of rectum Completed 201612/09/2020 Encounter for screening for malignant neoplasm of rectum;Re corded Elsewhere : No Locati on: [facility] So urce: EHR Chron ic: N Practic e ID: 0001 Bill able Time: 08:45:00 AM Marilou Cabrera [facility] 15:35:47 Screenin g for malignan t neoplasm of cervix Completed 201012/09/2020 Screening for malignant neoplasms of the cervix;Re corded Elsewhere : No Locati on: [facility] So urce: EHR Chron ic: N Practic e ID: 0001 Bill able Time: 02:00:00 PM Marilou [facility] 15:35:46 Pain in female genitali a Completed 201612/09/2020 Dysmenorr hea, unspecifi ed;Record ed Elsewhere : No Locati on: [facility] So urce: EHR Chron ic: N Practic e ID: 0001 Bill able Time: 08:15:00 AM Marilou Cabrera [facility] 15:35:41 Clinical finding Completed 201612/09/2020 Presence of (intraute rine) contracep tive device;Re corded Elsewhere : No Locati on: [facility] So urce: EHR Chron ic: N Practic e ID: 0001 Bill able Time: 09:15:00 AM Marilou [facility] 15:35:[address] Concept Completed 201612/09/2020 Encntr for obstetrician gynecologist exam (general) (routine) w/o abn findings; Recorded Elsewhere : No Locati on: [facility] So urce: EHR Chron ic: N Practic e ID: 0001 Bill able Time: 08:45:00 AM Marilou Cabrera [facility] 15:35:[address] Concept Completed 201512/09/2020 Encntr for general adult medical exam w/o abnormal findings; Recorded Elsewhere : No Locati on: [facility] So urce: EHR Chron ic: N Practic e ID: 0001 Bill able Time: 01:00:00 PM Marilou Cabrera [facility] 15:35:49 [facility] [id number] Completed 201312/09/2020 Overweigh t;Recorde d Elsewhere : No Locati on: [facility] So urce: EHR Chron ic: N Practic e ID: 0001 Bill able Time: 09:45:00 AM Marilou Cabrera [facility] 15:35:40 Atypical squamous cells of undeterm ined signific ance on cervical Papanico laou smear [id number] Completed 201112/09/2020 Papanicol aou smear of cervix with atypical squamous cells of undetermi john significa nce (ASC-US); Recorded Elsewhere : No Locati on: [facility] So urce: EHR Chron ic: N Practic e ID: 0001 Bill able Time: 02:45:00 PM Marilou Cabrera [facility] 15:35:31 Problem Notes None recorded. Procedures Surgical History Date Name Laterality Status Provider Name and Address Organization Details Recorded Time 08/18/19 23 IUD Removal completed Rhonda Mccarty LILIAN- [address], [place], [address], [place] [facility] 08/17/2022 11:19:35 02/26/20 22 Date of Last Mammogram completed Ciara Goyal [facility] 08/17/2022 10:58:51 12/17/19 22 Date of Last Pap Smear completed Rosie Valdez [facility] 12/26/2023 17:03:23 05/05/19 16 completed [facility] 12/10/2020 12:52:45 05/05/19 16 Date of Last Colonoscopy completed [facility] 12/10/2020 12:52:45 Caesarean Section completed [facility] 12/10/2020 12:52:52 Imaging Results Imaging Date Name Status LastModified by Organization Details LastModified Time 12/21/2021 US, pelvis completed [email or web address] [facility] [address], [place], [address], 12/21/2021 15:49:53 12/21/2021 US, transvaginal completed [email or web address] [facility] [address], [place], [address], 12/21/2021 15:49:44 12/21/2021 US, pelvis completed [facility] [address], [place], [address], 01/02/2022 10:34:53 02/25/2022 MAMMO, screening, bilateral completed [facility] [address], [place], [address], 03/04/2022 14:03:33 Procedure Notes None recorded. Medical Equipment None Reported. Allergies Allergen ID Allergen Name Allergen Category Reaction Reaction Severity Criticality Documentation Date Start Date Code Code System Note Provider Name and Address Organization Details Recorded Time 00319 bacitraci n / neomycin / polymyxin B medicatio n rash moderate Not available 12/10/2020 75037 9 [facility] 12:52:17 Medications Name Sig Start Date Stop Date Status Note LastModified by Organization Details LastModified Time Mirena 21 mcg/24 hr (up to 8 years) 52 mg intrauter ine device Take by intraute rine route. 08/17 completed 08/16/19 23 due for removal Not Available Not Available Not Available metronida zole 0.75 % (37.5 mg/5 gram) vaginal gel INSERT ONE APPLICAT ORFUL VAGINALL Y AT BEDTIME FOR 5 NIGHTS 12/25 completed Not Available Not Available Not Available hydrocort isone 2.5 % topical cream with perineal applicato r APPLY RECTALLY TO THE AFFECTED AREA TWICE DAILY NEEDED FOR HEMORRHO IDS 12/16 completed Not Available Not Available Not Available betametha sone dipropion ate 0.05 % topical cream 12/25 completed Not Available Not Available Not Available mupirocin 2 % topical ointment APPLY SMALL AMOUNT TOPICALL Y TO THE AFFECTED AREA THREE TIMES DAILY 12/25 completed Not Available Not Available Not Available Vitamin D2 1,250 mcg (50,000 unit) capsule take 1 capsule by oral route every week 06/06 completed Prescrib ed Elsewher e: No Locat ion: [facility] odify By: audra pantoja DateTime : 04/07/19 10:02:07 AM Not Available Not Available Not Available Calcium 500 + D 500 mg-5 mcg (200 unit) tablet 06/06 completed Prescrib ed Elsewher e: Yes Loca tion: [facility] odify By: audra pantoja DateTime : 01/20/20 11 02:00:00 PM Not Available Not Available Not Available cholecalc iferol (vitamin D3) 1,250 mcg (50,000 unit) capsule TAKE 1 CAPSULE BY MOUTH WEEKLY 12/16 completed Not Available Not Available Not Available Lysteda 650 mg tablet take 2 tablet by oral route 3 times every day during menses 07/20 completed Prescrib ed Elsewher e: No Locat ion: [facility] odify By: audra pantoja DateTime : 03/29/19 17 08:45:00 AM Not Available Not Available Not Available Multi Vitamin 9 mg iron/15 mL oral liquid 12/23 completed Prescrib ed Elsewher e: Yes Loca tion: [facility] odify By: enrique mazariegos DateTime : 01/29/20 13 10:15:00 AM Not Available Not Available Not Available Vitals Date Recorded Body height Body weight Systolic blood pressure Diastolic blood pressure Provider Name and Address Organization Details Last Updated DateTime 12/16/2021 160.02 cm 84734.26 g 122 mm[Hg] 76 mm[Hg] Marilou Cabrera [facility] 12/16/2021 15:24:29 Date Recorded Body height Body mass index (BMI) Body weight Systolic blood pressure Diastolic blood pressure Provider Name and Address Organization Details Last Updated DateTime 08/17/2022 160.02 cm 26.9 kg/m2 98009.04 g 103 mm[Hg] 67 mm[Hg] Ciara [facility] 3 10:58:40 Date Recorded Body height Body mass index (BMI) Body weight Systolic blood pressure Diastolic blood pressure Provider Name and Address Organization Details Last Updated DateTime 12/23/2022 160.02 cm 27.1 kg/m2 19286.63 g 97 mm[Hg] 60 mm[Hg] Ciara [facility] 3 13:27:24 Date Recorded Body height Body mass index (BMI) Body weight Systolic blood pressure Diastolic blood pressure Provider Name and Address Organization Details Last Updated DateTime 12/26/2023 160.02 cm 27.3 kg/m2 66422.22 g 100 mm[Hg] 64 mm[Hg] Rosie Barrazaton [facility] 4 17:03:15 Social History Question Answer Notes LastModified by Organizat ion Details LastModified Time Tobacco Smoking Status Never Smoker Tia Paul cotto, [facility] 12/23/2022 13:22:48 Do You Have An Advance Directive? No Information n ot available 12/10/2020 What Is Your Level Of Alcohol Consumption? None Information not available 12/10/2020 Are You Blind Or Do You Have Difficulty Seeing? No Information n ot available 12/10/2020 What Is Your Level Of Caffeine Consumption? Moderate Information not available 12/10/2020 How Much Tobacco Do You Chew? None Information not available 12/10/2020 In The 14 Days Before Symptom Onset, Have You Had Close Contact With A Laboratory-confirm ed COVID-19 While That Case Was Ill? No Information n ot available 12/10/2020 In The 14 Days Before Symptom Onset, Have You Had Close Contact With A Person Who Is Under Investigation For COVID-19 While That Person Was Ill? No Information not available 12/10/2020 Have You Been To An Area Known To Be High Risk For COVID-19? No Information not available 12/10/2020 Are You Deaf Or Do You Have Serious Difficulty Hearing? No Information not available 12/10/2020 What Type Of Diet Are You Following? REGULAR Information n ot available 12/10/2020 What Is The Highest Grade Or Level Of School You Have Completed Or The Highest Degree You Have Received? 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 No Information not available 12/10/2020 Do You Use Protection During Sex? No Information not available 12/10/2020 Do You Use Your Seat Belt Or Car Seat Routinely? Yes Information not available 12/10/2020 Do You Have Smoke And Carbon Monoxide Detectors In Your Home? Yes Information not available 12/10/2020 How Much Tobacco Do You Smoke? No Information not available 12/10/2020 Do You Feel Stressed (tense, Restless, Nervous, Or Anxious, Or Unable To Sleep At Night)? [id number] Information not available 12/10/2020 Do You Use Any Illicit Or Recreational Drugs? No Information not available 12/10/2020 Do You Use Sunscreen Routinely? Yes Information not available 12/10/2020 Have You Used IV Drugs? No Information not available 12/10/2020 Sex: Unknown Functional Status Question Answer Note LastModified by Organizat ion Details LastModified Time Do you have difficulty walking or climbing stairs? No [id number] Information not available 12/23/2022 Are you able to walk? YESWOREST Information not available 12/10/2020 Are you able to care for yourself? Yes [email or web address] Information not available 12/23/2022 Do you have difficulty dressing or bathing? No [email or web address] Information not available 12/23/2022 What is your exercise level? Heavy Information not available 12/10/2020 Mental Status None recorded. Family History Relationship Description Onset Age of this Age Resolved Age Notes LastModified by Organization Details LastModified Time Father Heart disease Not available 2020 11:56:02 Father Non-Hodgkin' s lymphoma (clinical) Not available 12/25 16:57:54 Father Malignant tumor of lung Not available 2021 15:26:28 Maternal Aunt Diabetes mellitus Not available 2020 12:52:20 Maternal Grandmother Malignant tumor of breast Not available 2020 12:52:20 Sister Asthma Not available 09/2020 12:52:20 Mother Diabetes mellitus Not available 2020 12:52:20 Medical History Condition Response Other Y GI Problems Y Gynecological History Statement/Question Response Abnormal Pap N Date of Last Mammogram 02/25/2022 N On BCP's at Conception? N STIs/STDs N Was last menstrual period normal N HPV Vaccine N Current Control Method Menopause 18 Age at First Child 29 If Post Menopausal, Age at Menopause 56 Date of control 08/04/2002 Are cycles usually normal N Date of Last Colonoscopy 05/05/2015 Sexually Active? Y Menopause Menses Monthly N Age of first menstrual cycle 18 Date of Last Pap Smear 12/16/2021 Sexual Problems? N Desired Control Method Partner Vas ectomy 05/05/2015 N Obstetrics History GPAL:G 3 P 0 0 0 3 Type Value Living 3 Total 3 Past Encounters Encounter ID Performer Location Encounter Start Date Encounter Closed Date Diagnosis/Indication Diagnosis SNOMED-CT Code Diagnosis ICD10 Code Diagnosis Note [id number] Rhonda Mccarty [facility] [address] [address] 12/10/2020 12:38:33 12/10/2020 13:19:57 Gynecologic examination [id number] Z01.419 Take Calcium with Vitamin D 12-1500mg daily. Do monthly self breast exams. It is advised to get annual flu shot in the fall and she could obtain at [facility] or [facility] take care clinic. If you haven't received the Tdap vaccine in the last 10 years you should obtain one as well. Have mammogram yearly, bone density every 2-3 years and colonoscop y every 5-10 years depending on findings and history. Engage in daily exercise of low impact aerobic exercise 45-60 minutes 4-5 times weekly. Avoid tobacco and illicit drugs as well as using moderation with alcohol intake less than 1-2 8 oz beverages daily. This lifestyle behavior pattern will lead to less health conditions and longer life span. If BMI greater than 25 weight watchers or dietary consult advised. Questions have been answered. Patient appears to understand instructio ns, but if you have any further questions call or respond to this email Pap/hpv updatedMir babak placed 08/15/2016 TD declinedNo issues or concernsMa mmo completed for 2020 [id number] Rhonda Mccarty [facility] [address] [address] 12/16/2021 15:09:30 12/16/2021 16:31:19 Gynecologic examination [id number] Z01.419 Z11.51 Take Calcium with Vitamin D 12-1500mg daily. Do monthly self breast exams. It is advised to get annual flu shot in the fall and she could obtain at [facility] or [facility] care clinic. If you haven't received the Tdap vaccine in the last 10 years you should obtain one as well. Have mammogram yearly, bone density every 2-3 years and colonoscop y every 5-10 years depending on findings and history. Engage in daily exercise of low impact aerobic exercise 45-60 minutes 4-5 times weekly. Avoid tobacco and illicit drugs as well as using moderation with alcohol intake less than 1-2 8 oz beverages daily. This lifestyle behavior pattern will lead to less health conditions and longer life span. If BMI greater than 25 weight watchers or dietary consult advised. Questions have been answered. Patient appears to understand instructio ns, but if you have any further questions call or respond to this email Pap/hpv SentSTD Screen declinedGe netic Screen discussedC olon Screen UTD PCPDexa Screen PCPRoutine Labs ordered FSH/LH/Est radiolMamm o ordered Abnormal u terine bleeding [id number] 9100 N93.9 Will update imaging/la bsHas Mirena IUD placed 2016Had a random menses on it after returning from a trip to [facility].Edwin anne udpate on results & let her know if further f/u is required. [id number] Simran Cabrera [facility] [address] [address] 12/21/2021 14:25:58 12/21/2021 15:26:06 Abnormal uterine bleeding [id number] 9100 N93.9 [id number] Rhonda Mccarty , [facility] [address],[facility] [place] [address] 08/17/2022 10:52:42 08/17/2022 11:32:57 Removal of intrauterine device [id number] Z30.432 It was explained that she may have bleeding or spotting after the removal of the device today as well. If cannot see the strings of this device we will need to get an US image to make that the device is still in place and not in an unobtainab le position. She expressed understand ing of all the above instructio ns. Menopausal symptom 16056 002 N95.1 Will update labs to gain an idea of where she is with ovarian functionarpita harmon [id number] Rhonda Mccarty , [facility] [address],[place] [address] 12/23/2022 13:20:53 12/23/2022 13:40:45 Gynecologic examination [id number] Z01.419 Z11.51 Take Calcium with Vitamin D 12-1500mg daily. Do monthly self breast exams. It is advised to get annual flu shot in the fall and she could obtain at [facility] or [facility] care clinic. If you haven't received the Tdap vaccine in the last 10 years you should obtain one as well. Have mammogram yearly, bone density every 2-3 years and colonoscop y every 5-10 years depending on findings and history. Engage in daily exercise of low impact aerobic exercise 45-60 minutes 4-5 times weekly. Avoid tobacco and illicit drugs as well as using moderation with alcohol intake less than 1-2 8 oz beverages daily. This lifestyle behavior pattern will lead to less health conditions and longer life span. If BMI greater than 25 weight watchers or dietary consult advised. Questions have been answered. Patient appears to understand instructio ns, but if you have any further questions call or respond to this email Pap/hpv Sent If pap wnl consider q3-5yrs per [facility]p for pap/hpv testing.Di scussed with patient. STD Screen declinedGe netic Screen discussedC olon Screen UTD PCPDexa Screen PCPRoutine Labs PCPMammo ordered Screening mammography [id number] Z12.31 [id number] Rosie Valdez [facility] [address] [address] 12/26/2023 16:57:08 12/26/2023 17:38:32 Gynecologic examination [id number] Z01.419 Annual gynecologi lola exam performed. Patient will come back in a year unless there are new symptoms. Suggest Calcium with Vitamin D if not eating in diet. Patient advised to get annual flu shot. Recommend yearly physicals and perform monthly breast exams. Genetic testing is available for patients with family history of cancer. Engage in safe sexual practices, use condoms. Encouraged to have daily exercise. Avoid tobacco and illicit drugs, moderation of alcohol. If BMI greater than 25 dietary consult advised. If you have any questions please call or email. mammogram- Per pt, had mammogram 06/2023 (WNL) colon cancer screening - PCP - UTD (2015) DEXA scan- n/a Pap smear- UTD (2022 - NILM, HPV negative), will repeat q3-5 years per [facility] laboratory evaluation - PCP STI testing - declined testing Health Concerns Section Related Observation LastModified by Organization Detai ls LastModified Time None Recorded Concern Status LastModified by Organization Details LastModified Time None Recorded Advance Directives Directive N: Payers Encounter Date Sequence Insurance Name Policy Number Policy Doll Covered Member ID Doll Member ID Guarantor Name 12/16/2021 1 [facility] [id number] Melisa A Banuelso [id number] Melisa Lupe Banuelos 12/21/2021 1 [facility] [id number] Melisa A Banuelos [id number] Melisa A Banuelos 08/17/[address] [place] [address] [id number] Melisa A Banuelos [id number] Melisa A Banuelos 12/23/2022 1 [facility] [id number] Melisa A Banuelos [id number] Melisa A Banuelos 12/26/2023 1 [facility] [id number] Melisa A Banuelos [id number] Melisa Banuelos Notes Date Note Type Note Provider Name and Address Organization Details Recorded Time 12/16/2021 text/html Annual 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 No sx's Bleeding resolved.) Urinary Symptoms:no hematuria; no incontinence; no nocturia; no urinary frequency Vulva:no genital lesion; no vulvar atrophy Vagina:normal vaginal discharge; no vaginal atrophy Breast:no breast lump; no nipple discharge; no breast pain Sexual Complaints:no sexual complaints Psychological Symptoms:no depression; no anxiety Preventive Measures:encourage regular mammograms starting age 40; encourage self breast examination; encourage regular exercise; encourage no tobacco use; needs to schedule mammogram; history of recent colonoscopy YOVANNY Gambino [address], [place], [address], [facility] 12/16/2021 16:10:02 08/17/2022 text/html Patient presents for IUD removal. YOVANNY Gambino [address], [place], [address], [facility] 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 Post-MenopausalRep orted bypatient.Menopaus al Symptoms:no menopausal symptoms; normal vaginal lubrication Vaginal Bleeding:history of menopause having occurred; no history of post menopausal bleeding Urinary Symptoms:no hematuria; no incontinence; no nocturia; no urinary frequency Vulva:no genital lesion; no vulvar atrophy Vagina:normal vaginal discharge; no vaginal atrophy Breast:no breast lump; no nipple discharge; no breast pain Sexual Complaints:no sexual complaints Psychological Symptoms:no depression; no anxiety Preventive Measures:encourage regular mammograms starting age 40; encourage self breast examination; encourage regular exercise; encourage no tobacco use; needs to schedule mammogram; history of recent colonoscopy YOVANNY Gambino [address], [place], [address], [facility] 12/23/2022 13:38:44 12/26/2023 text/html Annual GYNReport ed bypatient.History: no gynecologic complaints Menstrual cycle:Post-menopau jorge l Urinary symptoms:No hematuria; No incontinence Vulva:No genital lesion Vagina:Normal vaginal discharge Breast:No breast pain; No breast lump; No nipple discharge Current Contraception:Part ner had vasectomy Sexual complaints:No sexual complaints; No pain during intercourse; Normal libido Menopausal Symptoms:No menopausal symptoms; Normal vaginal lubrication Psychological symptoms:No depression; No anxiety; No PMDD Preventive measures:Encourage self breast examination; Encourage regular exercise; Encourage no tobacco use; Encourage regular mammograms starting age 40; Mammogram performed within the past year; Up to date on colonoscopy screening Patient presents for annual well woman exam. Patient denies concerns today. Rosie Valdez [facility] 12/27/2023 09:33:26 OBGyn Episode Ob Episode Information Episode Created Date Number of Fetuses Patient Bloodtype Patient rh Status Prepregnancy Weight lbs Domestic Partner Domestic Partner Phone Father Name Chief Engineer Research Status 12/11/19 21 1 CLOSED Fetus Data First Name Last Name Admitted to NICU Weight (g) Sex Living Outcome Pediatric Complications Fetus ID Race Codes Race Delivery Type F Full Term [id number] Patricio Calculation Initial Patricio Date Initial Exam Date Initial Exam Provider Initial Ultrasound Date Last Menstrual Period Date Ultra Sound Weeks Gestation 0 Eighteen To Twenty Week Patricio Update Ultra Sound Date Fundal Height At Umbil Quickening Date Ultra Sound Latest Weeks Gestation Final Patricio Confirmed By Final Patricio Confirmed Date Final Patricio Date Ultra Sound Latest Days Gestation 0 0 Menstrual History Last Menstrual Date Menses Monthly On Bcp Conception Prior Menses Frequency Hcg Plus Date Menarche Onset Age Delivery Information Delivery Date Delivery Type Labor Anesthesia Weeks Gestation Incision Type Labor Labor Length Hrs Delivered By Post Complications Tubal Sterilization Discharge Date Comments 1 Discharge Information Feeding Method Contraceptive Method Maternal HG B and HCT Levels Ob Episode Information Episode Created Date Number of Fetuses Patient Bloodtype Patient rh Status Prepregnancy Weight lbs Domestic Partner Domestic Partner Phone Father Name Chief Engineer Research Status 12/11/19 21 1 CLOSED Fetus Data First Name Last Name Admitted to NICU Weight (g) Sex Living Outcome Pediatric Complications Fetus ID Race Codes Race Delivery Type F Full Term [id number] Primary Patricio Calculation Initial Patricio Date Initial Exam Date Initial Exam Provider Initial Ultrasound Date Last Menstrual Period Date Ultra Sound Weeks Gestation 0 Eighteen To Twenty Week Patricio Update Ultra Sound Date Fundal Height At Umbil Quickening Date Ultra Sound Latest Weeks Gestation Final Patricio Confirmed By Final Patricio Confirmed Date Final Patricio Date Ultra Sound Latest Days Gestation 0 0 Menstrual History Last Menstrual Date Menses Monthly On Bcp Conception Prior Menses Frequency Hcg Plus Date Menarche Onset Age Delivery Information Delivery Date Delivery Type Labor Anesthesia Weeks Gestation Incision Type Labor Labor Length Hrs Delivered By Post Complications Tubal Sterilization Discharge Date Comments 6 Discharge Information Feeding Method Contraceptive Method Maternal HG B and HCT Levels Ob Episode Information Episode Created Date Number of Fetuses Patient Bloodtype Patient rh Status Prepregnancy Weight lbs Domestic Partner Domestic Partner Phone Father Name Chief Engineer Research Status 12/11/19 21 1 CLOSED Fetus Data First Name Last Name Admitted to NICU Weight (g) Sex Living Outcome Pediatric Complications Fetus ID Race Codes Race Delivery Type M Full Term [id number] Patricio Calculation Initial Patricio Date Initial Exam Date Initial Exam Provider Initial Ultrasound Date Last Menstrual Period Date Ultra Sound Weeks Gestation 0 Eighteen To Twenty Week Patricio Update Ultra Sound Date Fundal Height At Umbil Quickening Date Ultra Sound Latest Weeks Gestation Final Patricio Confirmed By Final Patricio Confirmed Date Final Patricio Date Ultra Sound Latest Days Gestation 0 0 Menstrual History Last Menstrual Date Menses Monthly On Bcp Conception Prior Menses Frequency Hcg Plus Date Menarche Onset Age Delivery Information Delivery Date Delivery Type Labor Anesthesia Weeks Gestation Incision Type Labor Labor Length Hrs Delivered By Post Complications Tubal Sterilization Discharge Date Comments 9 Discharge Information Feeding Method Contraceptive Method Maternal HG B and HCT Levels
--- OUTSIDE RECORDS SUMMARY | 2024-03-28 19:31 | XMS_ITS | Encounter Summary ---
Author Organization [facility] Health Address [facility] [place] [address] Care Team Providers Care Wood Finisher Name Role Phone Unavailable Primary Care Provider Unavailabl e Encounter Details Date Type Department Care Team (Late st Contact Info) Description 11/30/2017 Lab Requisition [facility] [address], [place] [address] Kee Rodriguez [place] [address] Social History Tobacco Use Types Packs/Day Years Used Date Smoking Tobacco: Never Smokeless Tobacco: Never Alcohol Use Standard Drinks/Week Comments No 0 (1 standard drink = 0.6 oz pur e alcohol) Sex and Gender Information Value Date Recorded Sex Assigned at Not on file Gender Identity Not on file Sexual Orientation Not on file documented as of this encounter Functional Status Functional Status Response Date of Assess ment Is person deaf or have serious hearing difficult y? No 12/03/2014 Is person blind or have serious difficulty seein g? No 12/03/2014 Does person have serious dif ficulty walking/climbing stairs? No 12/03/2014 Does person have difficulty dressing/bathing? No 12/03/2014 Does person have difficulty doing errands alone? No 12/03/2014 Cognitive Status Response Date of Assessm ent Does person have difficulty concentrating/remembering/making decisions? No 12/03/2014 documented as of this encounter Plan of Treatment Not on file documented as of this encounter Procedures Procedure Name Priority Date/Time Associated Diagnosis Comments DERMATOPATHOLOGY Routine 11/29/2017 12:0 0 AM CDT documented in this encounter Results * DERMATOPATHOLOGY (11/29/2017 12:00 AM CDT) Case Report Dermatopathology Report ? Case: [id number] ? Authorizing Provider: ??Kee Rodriguez MD ?Collected: ? 11/29/2017 12:00 AM ? Pathologist: ? Codie Jackson MD ? Received: ?11/30/2017 11:56 AM ? Specimen: ?Skin, midline mid back ? 8 1:58 PM CDT DERMATOPATHOLOGY LABORATORY Final Diagnosis Specimen A. SKIN, midline mid back: EPIDERMOID CYST (L72.0) 8 1:58 PM CDT DERMATOPATHOLOGY LABORATORY Clinical History R/O SQ, cyst, other. 8 1:58 PM CDT DERMATOPATHOLOGY LABORATORY Gross Description Specimen A: Received is one formalin filled container labeled with the patient's name and designated midline mid back. The specimen consists of a [id number] excision of skin. The specimen is serially sectioned and a containers sales representative section is submitted in cassette 1. Jar 1. 8 1:58 PM CDT DERMATOPATHOLOGY LABORATORY Microscopic Description Specimen A. SKIN, midline mid back: Within the dermis, there is a space lined by epithelium that resembles normal epidermis and the infundibular portion of the hair follicle. 8 1:58 PM CDT DERMATOPATHOLOGY LABORATORY Disclaimer An external and internal positive and negative controls are appropriate for the histochemical, immunohistochemical and immunofluorescence stain(s) in this case (if any), except where stated explicitly. The performance characteristics of the stain(s) cited in this report were developed and its performance characteristic determined by the Dermatopathology Laboratory at [facility]. These tests need not be, and therefore are not, approved by the [place] Food and Drug Administration. The tests are used for clinical purposes. Billing Codes Specimen Charges Stain Charges 83134 1 8 1:58 PM CDT DERMATOPATHOLOGY LABORATORY Embedded Images 8 1:58 PM CDT DERMATOPATHOLOGY LABORATORY Pathology/Cytolog y TISSUE SPECIMEN FROM SKIN / Unknown 11/29/2017 11/30/2017 11:56 AM CDT Kee Rodriguez MD LAB - PATHOLOGY/CYTO LOGY ORDERABLES DERMATOPATHOLOGY LABORATORY [facility] - Department of Dermatology [address] [place] [address] 5th Floor Lab [address] [phone] documented in this encounter Visit Diagnoses Not on filedocumented in this encounter
--- OUTSIDE RECORDS SUMMARY | 2024-03-28 19:31 | XMS_ITS | Continuity of Care Document ---
Author Organization [facility] Address [address] [place] [address] Phone Care Team Providers Care Turbine Engine Assembler Name Role Phone Noemy RAJAN, Hannah Unavailable Unavailable Advance Directives Directive Yes / No Effective Date File Name No Information Encounters Encounter Description Practice Location Reason(s) For Visit Diagnoses Date Provider Providers Copied on Encounter [facility], [address], [place], [place], [id number], [place] tel:[phone] [facility] No Information Noemy Young. [address], [address], [place], [place], [id number]. tel:[phone] Family History Family Member Type Diagnosis Age At Onset No Information Payers Payer name Insurance type Covered alliance party ID Authoriza tion(s) No Information Social History [...]
--- OUTSIDE RECORDS SUMMARY | 2024-03-28 19:31 | XMS_ITS | Clinical Summary ---
Author Organization [facility] [employer] Address [facility] [place] [address] Care Team Providers Care College Teacher Name Role Phone Unavailable Primary Care Provider Unavailabl e Source Comments [facility] [employer],non-owned Affiliates and Associated Physician Practices is amultiple site organization consisting of ambulatory clinics and hospital sitesin [place], [place], [place] and [place]. This disclosure is being madepursuant to the Care Everywhere program and may not contain all information available regarding this patient. Last updated 17.[facility] [employer] Allergies No known active allergies Medications * Be aware that medications may not be up to date on this document. Alwaysverify current medications with the patient. Medication Sig Dispensed Refills Start Date End Date Status multivitamin daily (THERAGRAN) tablet Take 1 Tab by mouth daily with food Active oxyCODONE-acetaminophe n (PERCOCET) 5-325 MG tablet Take 1 Tab by mouth every 4 hours as needed for Pain 60 Tab 0 12/03/2014 Active Social History Tobacco Use Types Packs/Day Years Used Date Smoking Tobacco: Never Smokeless Tobacco: Never Alcohol Use Standard Drinks/Week Comments No 0 (1 standard drink = 0.6 oz pur e alcohol) Sex and Gender Information Value Date Recorded Sex Assigned at Not on file Gender Identity Not on file Sexual Orientation Not on file Last Filed Vital Signs Vital Sign Reading Time Taken Comments Blood Pressure 92/55 12/03/2014 5:53 PM CDT Pulse 70 12/03/2014 5:53 PM CDT Temperature 37.2 ??C (98.9 ??F) 12/03/2014 4:57 PM CD T Respiratory Rate 16 12/03/2014 5:53 PM CDT Oxygen Saturation 97% 12/03/2014 5:53 PM CDT Inhaled Oxygen Concentration - - Weight 73 kg (161 lb) 12/03/2014 10:59 AM CDT Height 160 cm (5' 3 ) 12/03/2014 10:59 AM CDT Body Mass Index 28.52 12/03/2014 10:59 AM CDT Plan of Treatment Health Maintenance Due Date Last Done Comments COLOGUARD (AGES 45-75) - COL ON CA SCREENING 1967 COLON MONITORING 1967 COLONOSCOPY - COLON CA SCREENING 1967 CT COLONOGRAPHY - COLON CA SCREENING 1967 Colorectal Cancer Screening 1967 FIT - COLON CA SCREENING 1967 FLEX SIG - COLON CA SCREENING 1967 LIPID TESTING 1967 MAMMOGRAM 1967 PAP SMEAR 1967 HIV SCREENING 11/23/1982 HEPATITIS C SCREENING 11/19/1985 DTAP/TDAP/TD VACCINES (1 - Tdap) 11/23/1986 HEPATITIS B VACCINE (1 of 3 - 19+ 3-dose series) 11/23/1986 PNEUMOCOCCAL VACCINE 50+ (1 of 1 - PCV) 11/23/2017 ZOSTER VACCINE (1 of 2) 11/23/2017 COVID-19 VACCINE ( - 2023-2 5 season) 2023 INFLUENZA VACCINE (#1) 2023 DEPRESSION SCREENING 03/06/2024 HIB VACCINE Aged Out No longer eligi ble based on patient's age to complete this topic HPV VACCINE Aged Out No longer eligi ble based on patient's age to complete this topic MENINGOCOCCAL (Group B) VACCINE Aged Out No longer eligible based on patient's age to complete this topic MENINGOCOCCAL VACCINE Aged Out No keren sean eligible based on patient's age to complete this topic PNEUMOCOCCAL VACCINE Aged Out No long er eligible based on patient's age to complete this topic Medical Devices Implanted Type Area Tool Repair Technician Device Identifier Shelf Expiration Date Model / Serial / Lot [employer]ush[employer] 4 X4 Cm Implanted:Qty: 1 on 12/03/2014 by Darek Herron MD at [facility] Right: Heel 10/21/2019 [id number] Melisa Banuelos Lupe Personal/Famil y Self 1965 [address] [place] [id number]
--- OUTSIDE RECORDS SUMMARY | 2024-03-28 19:31 | XMS_ITS | Patient Health Summary ---
Author Organization [facility] [employer] Address [address] [place] [address] [place] [address] Care Team Providers Care Precision Inspector Name Role Phone Unavailable Primary Care Provider Unavailabl e Note from [facility],non-owned Affiliates and Associated Physician Practices is amultiple site organization consisting of ambulatory clinics and hospital sitesin [place], [place], [place] and [place]. This disclosure is being madepursuant to the Care Everywhere program and may not contain all information available regarding this patient. Last updated 17.[facility] [employer] Allergies No known active allergies Medications * Be aware that medications may not be up to date on this document. Alwaysverify current medications with the patient. * multivitamin daily (THERAGRAN) tablet Take 1 Tab by mouth daily with food * oxyCODONE-acetaminophen (PERCOCET) 5-325 MG tablet(Started 12/03/2014) Take 1 Tab by mouth every 4 hours as needed for Pain Social History Tobacco Use Types Packs/Day Years [...] Mass Index 28.52 12/03/2014 10:59 AM CDT Medical Devices Implanted Type Area Records Officer Device Identifier Shelf Expiration Date Model / Serial / Lot [place] 4 X4 Cm Implanted:Qty: 1 on 12/03/2014 by Darek Herron MD at [facility] Right: Heel 10/21/2019 NO-[id number] / / [id number] Procedures * DERMATOPATHOLOGY(Performed 11/29/2017) * CARDIAC EKG ORDER(Performed 12/04/2014) * LAB RESULTS ORDER(Performed 12/04/2014) * CARDIAC RHYTHM STRIP ORDER(Performed 12/04/2014) * IMAGING/RADIOLOGY/XRAY RESULTS ORDER(Performed 12/04/2014) * XR CALCANEUS RIGHT 2VW OR MORE(Performed 12/03/2014) Performed for Other acquired calcaneus deformity * PATHOLOGY TISSUE EXAM (STL)(Performed 12/03/2014) Performed for Other acquired calcaneus deformity * OXYGEN(Performed 12/03/2014) * PERIPHERAL BLOCK(Performed 12/03/2014) * DEBRIDEMENT/EXCISION TENDON(Performed 12/03/2014) Performed for Other acquired calcaneus deformity * REPAIR ACHILLES TENDON(Performed 12/03/2014) Performed for Other acquired calcaneus deformity * OSTECTOMY/EXCISION CALCANEUS(Performed 12/03/2014) Performed for Other acquired calcaneus deformity * HCG URINE QUALITATIVE - POINT OF CARE(Performed 12/03/2014) Results * DERMATOPATHOLOGY (11/29/2017 12:00 AM CDT) Case Report Dermatopathology Report ? Case: [id number] ? Authorizing Provider: ??Kee Rodriguez MD ?Collected: ? 11/29/2017 12:00 AM ? Pathologist: ? Codie Jackson MD ? Received: ?11/30/2017 11:56 AM ? Specimen: ?Skin, midline mid back ? 1:58 PM T DERMATOPATHOLOGY LABORATORY Final Diagnosis Specimen A. SKIN, midline mid back: EPIDERMOID CYST (L72.0) 1:58 PM T DERMATOPATHOLOGY LABORATORY Clinical History R/O SQ, cyst, other. 1:58 PM T DERMATOPATHOLOGY LABORATORY Gross Description Specimen A: Received is one formalin filled container labeled with the patient's name and designated midline mid back. The specimen consists of a [id number] excision of skin. The specimen is serially sectioned and a manufacturer's representative section is submitted in cassette 1. Jar 1. 1:58 PM T DERMATOPATHOLOGY LABORATORY Microscopic Description Specimen A. SKIN, midline mid back: Within the dermis, there is a space lined by epithelium that resembles normal epidermis and the infundibular portion of the hair follicle. 1:58 PM T DERMATOPATHOLOGY LABORATORY Disclaimer An external and internal positive and negative controls are appropriate for the histochemical, immunohistochemical and immunofluorescence stain(s) in this case (if any), except where stated explicitly. The performance characteristics of the stain(s) cited in this report were developed and its performance characteristic determined by the Dermatopathology Laboratory at [facility]. These tests need not be, and therefore are not, approved by the [place] Food and Drug Administration. The tests are used for clinical purposes. Billing Codes Specimen Charges Stain Charges 06764 1 1:58 PM CDT DERMATOPATHOLOGY LABORATORY Embedded Images 1:58 PM CDT DERMATOPATHOLOGY LABORATORY Pathology/Cytolog y TISSUE SPECIMEN FROM SKIN / Unknown 11/29/2017 11/30/2017 11:56 AM CDT Kee Rodriguez MD LAB - PATHOLOGY/CYTO LOGY ORDERABLES DERMATOPATHOLOGY LABORATORY [facility] - Department of Dermatology [address] [facility], [address] [place] [address], [facility] [[email or web address]] [phone] * LAB RESULTS ORDER (12/04/2014 8:42 PM CDT) Narrative 12/04/2014 8:42 PM CDT Ordered by an unspecified provider. Scanned Document LAB - THERAPEUTIC DR JACK MONITORING ORDERABLES * CARDIAC EKG ORDER (12/04/2014 8:42 PM CDT) Narrative 12/04/2014 8:42 PM CDT Ordered by an unspecified provider. Scanned Document CARDIAC SERVICES ORD ERABLES * CARDIAC RHYTHM STRIP ORDER (12/04/2014 8:42 PM CDT) Narrative 12/04/2014 8:42 PM CDT Ordered by an unspecified provider. Scanned Document CARDIAC SERVICES ORD ERABLES * IMAGING/RADIOLOGY/XRAY RESULTS ORDER (12/04/2014 7:11 PM CDT) Anatomical Region Laterality Modality Other Narrative 12/04/2014 7:11 PM CDT Ordered by an unspecified provider. Scanned Document IMAGING * XR CALCANEUS 2+ VW RIGHT (12/03/2014 5:35 PM CDT) Anatomical Region Laterality Modality Ankle / Foot, Lower Extremity Ra diographic Imaging 12/03/2014 5:29 PM CDT Impressions 12/03/2014 5:32 PM CDT Postsurgical changes posterior calcaneus. Narrative 12/03/2014 5:32 PM CDT Examination: Right calcaneal radiographs, 2 views. History: Right heel pain. 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 There is swelling and gas in the surgical bed, expected, and a few scattered pieces of bone. Procedure Note Norm Marcos MD - 09/30/2015 Examination: Right calcaneal radiographs, 2 views. History: Right heel pain. 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 There is swelling and gas in the surgical bed, expected, and a few scattered pieces of bone. IMPRESSION Postsurgical changes posterior calcaneus. Darek Herron MD DIAGNOSTIC IMAGING ORDERABLES * GROSS + MICRO EXAM (STL) (12/03/2014 3:40 PM CDT) Case Report Surgical Pathology Report ? Case: [id number] ? Authorizing Provider: ??Darek Herron MD ?Collected: ? 12/03/2014 03:40 PM ? Ordering Location: ? [facility] ? Received: ?12/04/2014 08:18 AM ? Pathologist: ? Rachid Hills MD ? Specimen: ?Bone Cancellous ? 12/08/2014 1:52 PM CDT [facility] Final Diagnosis Cancellous bone, right, resection: - Degenerative changes MC/scs 12/08/2014 1:52 PM CDT [facility] Gross Description Received in a container of formalin labeled Melisa Banuelos and bone cancellous are two irregular fragments of bone and a piece of yellow fatty tissue. The bone ranges in greatest dimension from 1.2 up to 2.1 cm. Sectioning displays a yellow trabecular cut surface. A piece of yellow fatty tissue measures 2.1 cm in greatest dimension. Sectioning displays a soft yellow unremarkable cut surface. ??Representativ e sections are submitted in cassettes A1 and A2 following decalcification . JS/robby 12/08/2014 1:52 PM CDT [facility] Microscopic Description Sections show bone and periosteal connective tissue with degenerative changes. MC/scs 12/08/2014 1:52 PM CDT [facility] Pathology/Cytolo gy TRABECULAR BONE TISSUE STRUCTURE / Unknown 12/03/2014 3:40 PM CDT 12/04/2014 8:18 AM CDT Darek Herron MD LAB - PATHOLOGY/CYT OLOGY ORDERABLES [facility] [address] [place] [address] * PERIPHERAL BLCOK (12/03/2014 3:29 PM CDT) Narrative Brooks Andrade MD - 12/03/2014 3:29 PM CDT Brooks Anton MD ? 12/03/2014 ??3:29 PM Peripheral Block Patient Location: ??pre-op Pre Procedure Indication: ??at surgeon's request and post-operative analgesia Preanesthetic Checklist: ??patient identified, IV checked, site marked, risks and benefits discussed, surgical consent verified, monitors and equipment checked, pre-op evaluation done, timeout performed, informed consent obtained and questions answered / anesthesia plan accepted Monitors: ??Pulse Ox Patient Condition: ??sedated, meaningful contact maintained Procedure Laterality: ??right Block Performed: ??popliteal Prep: ??Chloraprep Sterile Field: ??sterile field established and sterile gloves Skin Numbed with: ??lidocaine 1% Needle Type: ??nerve stimulator Needle Gauge: ??21 Needle Length: ??50 mm Nerve Stimulator foot, ankle, toes ? Loss of Stimulation at 0.48 mA Ultrasound guided Technique: ??in plane Visualization: ??target ID'd, good spread of local around target and Ultrasound image in chart Block Agent: ??ropivacaine 0.5% 40 mL Epinephrine in Block Agent: ??none Other Additives: ? clonidine 100 mcg ? Injection was made incrementally with constant monitoring and aspirations every 5 mL's. Events blood not aspirated injection not painful no injection resistance no paresthesia Block Performed by: ??Christopher Anton MD This block was performed for post operative analgesia at surgeon's request, after timeout and site marking. Please see intraop navigator for medications administered. Sterile technique followed. VSS throughout. Brooks Anton MD GENERAL AN ESTHESIA ORDERABLES * HCG URINE QUALITATIVE - POINT OF CARE (IP) (12/03/2014 10:42 AM CDT) HCG Qual Urine Negative Negative [facility] POCT TESTING QC Verified Yes Yes [facility] POC T TESTING Urine specimen (specimen) URINE / Unknown 12/03/2014 10:42 AM CDT Darek Herron MD LAB - POINT OF CARE ORDERABLES [facility] POCT TESTING [address] [place] [id number]
--- OUTSIDE RECORDS SUMMARY | 2024-03-28 19:31 | XMS_ITS | Referral Summary ---
Author Organization [facility] [email or web address] Address [facility] [place] [address] Care Team Providers Care Regulatory Specialist Name Role Phone Unavailable Primary Care Provider Unavailabl e Source Comments [facility] [email or web address],non-owned Affiliates and Associated Physician Practices is amultiple site organization consisting of ambulatory clinics and hospital sitesin [place], [place] and [place]. This disclosure is being madepursuant to the Care Everywhere program and may not contain all information available regarding this patient. Last updated 17.[facility] [email or web address] Allergies No known active allergies Medications * [...] Mass Index 28.52 12/03/2014 10:59 AM CDT Functional Status Functional Status Response Date of [...] person have difficulty concentrating/remembering/making decisions? No 12/03/2014 Plan of Treatment Not on file Medical Devices Implanted Type Area Livestock Breeder Device Identifier Shelf Expiration Date Model / Serial / Lot [place] 4 X4 Cm Implanted:Qty: 1 on 12/03/2014 by Darek Herron MD at [facility] Right: Heel 10/21/2019 NO-[id number] / / [id number]
== END 2024-03-26 15:04 | disposition home or self-care (01) ==
PROVIDERS: PCP Internal Medicine; Visit Provider Clinical Nurse Specialist
DX: I77.810 Thoracic aortic ectasia (principal); I95.9 Hypotension, unspecified
CPT/HCPCS: 71260; Q9967

== ENCOUNTER 2024-04-05 13:47 | Outpatient (CLI) | payer BC, SELFPAY ==
--- OUTSIDE RECORDS SUMMARY | 2024-04-05 13:53 | XMS_ITS | Data Portability ---
Author Organization [facility] Address [address] [place] [address] Care Team Providers Care Cream Ripener Name Role Phone ACE BEAUCHAMP Primary Care [...] hormone panel, serum or plasma 2021 022 [facility] (Lab), [address], [place], [address], 03:05:23 hormone panel, serum or plasma 2022 023 [facility] (Lab), [address], [place], [address], 3 06:56:22 Referral None recorded. Procedures None recorded. Surgeries None recorded. Imaging US, pelvis, complete 2021 022 [address], [address], [place], [address], 2 16:04:59 US, pelvis 2021 022 [email or web address] [address], [address], [place], [address], 2 22:18:15 US, transvagina l 2021 022 [email or web address], [address], [place], [address], 22:18:15 MAMMO, screening, bilateral [address] [facility], [address], [place], [address], 3 10:26:04 Medication Orders None recorded. Patient [...] 561-2 1280 pg/mL 3rd Trime ster8 525-> 28268 pg/mL Not Available [facility] [address] [place], [address], 12/17/2021 03:05:20 12/17/19 22 12/16/2021 FSH, LH, ESTRA DIOL FSH 58.7 mIU/m L This assay was perfo rmed using [employer] ratio n reage nts and test kits. Value s obtai john with other assay metho ds or kits canno t be used [facility] . Femal es Folli cular : 3.5-1 2.5 mIU/m L Ovula tion: 4.7-2 1.5 mIU/m L Lutea l: 1.7-7 .7 mIU/m L Postm enopa use: 25.8- 134.8 mIU/m L Not Available [facility] [address] [place] [address], [address], 12/17/2021 03:05:20 12/17/19 22 12/16/2021 FSH, LH, ESTRA DIOL LH 26.7 mIU/m L This assay was perfo rmed using [employer] n reage nts and test kits. Value s obtai john with other assay metho ds or kits canno t be used [facility] . 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 Not Available [facility] [address] [place], [address], 12/22/2021 11:20:32 08/18/19 23 08/17/2022 FSH, LH, ESTRA DIOL estradiol <5.0 pg/mL This assay was perfo rmed using [employer] reage nts and test kits. Value s obtai john with other assay metho ds or kits canno t be used [facility] . Femal e Estra diol Range s: Folli cular phase 12.4- 233 pg/mL Ovula tion phase 41.0- 398 pg/mL Lutea l phase 22.3- 341 pg/mL Postm enopa usal< 5-138 pg/mL Healt hy Pregn ant Women 1st Trime ster1 54-32 43 pg/mL 2nd Trime ster1 561-2 1280 pg/mL 3rd Trime ster8 525-> 35675 pg/mL Not Available [facility] (Lab) [address], [place], [address], 08/18/2022 06:56:22 08/18/19 23 08/17/2022 FSH, LH, ESTRA DIOL FSH 68.5 mIU/m L This assay was perfo rmed using [employer] n reage nts and test kits. Value s obtai john with other assay metho ds or kits canno t be used [facility] . Femal es Folli cular : 3.5-1 2.5 mIU/m L Ovula tion: 4.7-2 1.5 mIU/m L Lutea l: 1.7-7 .7 mIU/m L Postm enopa use: 25.8- 134.8 mIU/m L Not Available [facility] (Lab) [address], [place], [address], 08/18/2022 06:56:22 08/18/19 23 08/17/2022 FSH, LH, ESTRA DIOL LH 29.5 mIU/m L This assay was perfo rmed using [employer] n reage nts and test kits. Value s obtai john with other assay metho ds or kits canno t be used [facility] . Femal es Mid-F ollic ular: 2.4-1 2.6 mIU/m L Mid-C ycle: 14.0- 95.6 mIU/m L Mid-L uteal : 1.0-1 1.4 mIU/m L Postm enopa use: 7.7-5 8.5 mIU/m L Not Available [facility] (Lab) [address] [place], [address], 08/18/2022 06:56:22 12/24/19 23 12/23/2022 IMAGE GUIDE D PAP AND HPV REGAR DLESS image guided Pap, HPV regardless of Pap result SEE RESULT S BELOW CASE REPOR T: Cytol ogy Gynec ologi lola Repor t Case: [id number] Autho kailey g Provi eris: Charlie Linda Colle cted: 12/23 1510 REAGENT TENDER HELPER Order ing Locat ion: [place] Patho logy [...] d, as clini segundo neried. Not Available [facility] (Lab) [address], [place], [address], 12/28/2022 09:12:19 12/22/19 22 12/21/2021 US, pelvi s No observ ation record ed. [email or web address] Emma [address], [place], [address], 12/21/2021 15:49:53 12/22/1912/21/2021 US, trans vagin al No observ ation record ed. [email or web address], [place], [address], 12/21/2021 15:49:44 12/22/19 22 12/21/2021 US, pelvi s No observ ation record ed. [facility] [address], [place], [address], 01/02/2022 10:34:53 02/26/20 22 02/25/2022 MAMMO , scree antonia, bilat eral No observ ation record ed. [facility] [address], [place], [address], 03/04/2022 14:03:33 Result Notes None recorded. Problems Name Problem SNOMED Code Status Onset Date Resolution Date Notes Provider Name and Address Organization Details Recorded Time Finding of pattern of menstrua l cycle 264471164 Completed 201612/09/2020 Excessive and frequent menstruat ion with irregular cycle;Pra ctice ID: [id number] Marilou cotto [facility] 15:35:36 Polyp of corpus uteri [id number] Completed 201612/09/2020 Polyp of corpus uteri;Pra ctice ID: 0001 Marilou cotto [facility] 15:35:43 Insertio n of intraute rine contrace ptive device Completed 201612/09/2020 Encounter for insertion of intrauter ine contracep tive device;Pr actice ID: 0001 Marilou Cabrera [facility] 15:35:38 Pregnanc y test negative [id number] Completed 201612/09/2020 Encounter for test, result negative; Practice ID: 0001 Marilou Cabrera [facility] 15:35:45 Surveill ance of contrace ption Completed 201612/09/2020 Encounter for surveilla nce of contracep tives, unspecifi ed;Practi ce ID: 0001 Marilou Cabrera [facility] 15:35:54 Cyst of ovary Completed 201612/09/2020 Unspecifi ed ovarian cyst, unspecifi ed side;Hiram rded Elsewhere : No Locati on: [facility] So urce: EHR Chron ic: N Practic e ID: 0001 Bill able Time: 10:02:07 AM Marilou Cabrera [facility] 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 15:35:52 Screenin g for malignan t neoplasm of rectum Completed 201612/09/2020 Encounter for screening for malignant neoplasm of rectum;Re corded Elsewhere : No Locati on: [facility] So urce: EHR Chron ic: N Practic e ID: 0001 Bill able Time: 08:45:00 AM Marilou Cabrera [facility] 15:35:47 Screenin g for malignan t neoplasm of cervix Completed 201012/09/2020 Screening for malignant neoplasms of the cervix;Re corded Elsewhere : No Locati on: [facility] So urce: EHR Chron ic: N Practic e ID: 0001 Bill able Time: 02:00:00 PM Marilou [facility] 15:35:46 Pain in female genitali a Completed 201612/09/2020 Dysmenorr hea, unspecifi ed;Record ed Elsewhere : No Locati on: [facility] So urce: EHR Chron ic: N Practic e ID: 0001 Bill able Time: 08:15:00 AM Marilou Cabrera [facility] 15:35:41 Clinical finding Completed 201612/09/2020 Presence of (intraute rine) contracep tive device;Re corded Elsewhere : No Locati on: [facility] So urce: EHR Chron ic: N Practic e ID: 0001 Bill able Time: 09:15:00 AM Marilou [facility] 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 15:35:[address] Concept Completed 201512/09/2020 Encntr for general adult medical exam w/o abnormal findings; Recorded Elsewhere : No Locati on: [facility] So urce: EHR Chron ic: N Practic e ID: 0001 Bill able Time: 01:00:00 PM Marilou Cabrera [facility] 15:35:49 [id number] Completed 201312/09/2020 Overweigh t;Recorde d Elsewhere : No Locati on: [facility] So urce: EHR Chron ic: N Practic e ID: 0001 Bill able Time: 09:45:00 AM Marilou Cabrera [facility] 15:35:40 Atypical squamous cells of undeterm ined signific ance on cervical Papanico laou smear [id number] Completed 201112/09/2020 Papanicol aou smear of cervix with atypical squamous cells of undetermi john significa nce (ASC-US); Recorded Elsewhere : No Locati on: [facility] So urce: EHR Chron ic: N Practic e ID: 0001 Bill able Time: 02:45:00 PM Marilou Cabrera [facility] 15:35:31 Problem Notes None recorded. Procedures Surgical History Date Name Laterality Status Provider Name and Address Organization Details Recorded Time 08/18/19 23 IUD Removal completed Rhonda Mccarty LILIAN- [address], [place], [address], [place] [facility] 08/17/2022 11:19:35 02/26/20 22 Date of Last Mammogram completed Ciara Goyal [facility] 08/17/2022 10:58:51 12/17/19 22 Date of Last Pap Smear completed Rosie Valdez [facility] 12/26/2023 17:03:23 05/05/[address] [facility] 12/10/2020 12:52:45 05/05/19 16 Date of Last Colonoscopy completed [facility] 12/10/2020 12:52:45 Caesarean Section completed [facility] 12/10/2020 12:52:52 Imaging Results Imaging Date Name Status LastModified by Organization Details LastModified Time 12/21/2021 US, pelvis completed [email or web address] Emma [address], [place], [address], 12/21/2021 15:49:53 12/21/2021 US, transvaginal completed [email or web address] Stanford moraes [address], [place], [address], 12/21/2021 15:49:44 12/21/2021 US, pelvis completed [facility] [address], [place], [address], 01/02/2022 10:34:53 02/25/2022 MAMMO, screening, bilateral completed [facility] [address], [place], [address], 03/04/2022 14:03:33 Procedure Notes None recorded. Medical Equipment None Reported. Allergies Allergen ID Allergen Name Allergen Category Reaction Reaction Severity Criticality Documentation Date Start Date Code Code System Note Provider Name and Address Organization Details Recorded Time 31590 bacitraci n / neomycin / polymyxin B medicatio n rash moderate Not available 12/10/2020 66877 9 [facility] 12:52:17 Medications Name Sig Start Date [...] Prescrib ed Elsewher e: No Locat ion: [facility] odify By: audra pantoja DateTime : 04/07/19 10:02:07 AM Not Available Not Available Not Available Calcium 500 + D 500 mg-5 mcg (200 unit) tablet 06/06 completed Prescrib ed Elsewher e: Yes Loca tion: [facility] odify By: audra pantoja DateTime : 01/20/20 [...] Prescrib ed Elsewher e: No Locat ion: [facility] odify By: audra pantoja DateTime : 03/29/19 17 08:45:00 AM Not Available Not Available Not Available Multi Vitamin 9 mg iron/15 mL oral liquid 12/23 completed Prescrib ed Elsewher e: Yes Loca tion: [facility] odify By: enrique mazariegos DateTime : 01/29/20 13 10:15:00 AM Not Available Not Available Not Available Vitals Date Recorded Body height Body weight Systolic blood pressure Diastolic blood pressure Provider Name and Address Organization Details Last Updated DateTime 12/16/2021 160.02 cm 74682.26 g 122 mm[Hg] 76 mm[Hg] Marilou Cabrera [facility] 12/16/2021 15:24:29 Date Recorded Body height Body mass index (BMI) Body weight Systolic blood pressure Diastolic blood pressure Provider Name and Address Organization Details Last Updated DateTime 08/17/2022 160.02 cm 26.9 kg/m2 63166.04 g 103 mm[Hg] 67 mm[Hg] Ciara [facility] 3 10:58:40 Date Recorded Body height Body mass index (BMI) Body weight Systolic blood pressure Diastolic blood pressure Provider Name and Address Organization Details Last Updated DateTime 12/23/2022 160.02 cm 27.1 kg/m2 22088.63 g 97 mm[Hg] 60 mm[Hg] Ciara [facility] 3 13:27:24 Date Recorded Body height Body mass index (BMI) Body weight Systolic blood pressure Diastolic blood pressure Provider Name and Address Organization Details Last Updated DateTime 12/26/2023 160.02 cm 27.3 kg/m2 91976.22 g 100 mm[Hg] 64 mm[Hg] Rosie Barrazaton [facility] 4 17:03:15 Social History Question Answer Notes LastModified by Organizat ion Details LastModified Time Tobacco Smoking Status Never Smoker Tia Paul cotto, [facility] 12/23/2022 13:22:48 Do You Have [...] Or The Highest Degree You Have Received? [id number] Information not available 12/10/2020 What Is Your Occupation? [employer] Information not available 12/16/2021 Are There Any [...] Anxious, Or Unable To Sleep At Night)? [id number] Information not available 12/10/2020 Do You Use Any Illicit Or Recreational Drugs? No Information not available 12/10/2020 Do You Use Sunscreen Routinely? Yes Information not available 12/10/2020 Have You Used IV Drugs? No Information not available 12/10/2020 Sex: Unknown Functional Status Question Answer Note LastModified by Organizat ion Details LastModified Time Do you have difficulty walking or climbing stairs? No [email or web address] Information not available 12/23/2022 Are you able to walk? YESWOREST Information not available 12/10/2020 Are you able to care for yourself? Yes [email or web address] Information not available 12/23/2022 Do you have difficulty dressing or bathing? No [email or web address] Information not available 12/23/2022 What is your [...] SNOMED-CT Code Diagnosis ICD10 Code Diagnosis Note [id number] Rhonda Mccarty [facility] [address] [address] 12/10/2020 12:38:33 12/10/2020 13:19:57 Gynecologic examination 58459508 Z01.419 Take Calcium with Vitamin D 12-1500mg daily. Do monthly self breast exams. It is advised to get annual flu shot in the fall and she could obtain at [facility] or [facility] take care clinic. If you haven't received [...] issues or concernsMa mmo completed for 2020 [id number] Rhonda Mccarty [facility] [address] [address] 12/16/2021 15:09:30 12/16/2021 16:31:19 Gynecologic examination 35214099 Z01.419 Z11.51 Take Calcium with Vitamin D 12-1500mg daily. Do monthly self breast exams. It is advised to get annual flu shot in the fall and she could obtain at [facility] or [facility] care clinic. If you haven't received the [...] radiolMamm o ordered Abnormal u terine bleeding [id number] 9100 N93.9 Will update imaging/la bsHas Mirena IUD placed 2016Had a random menses on it after returning from a trip to [facility].Edwin anne udpate on results & let her know if further f/u is required. [id number] Simran Cabrera Emma [address] [address] 12/21/2021 14:25:58 12/21/2021 15:26:06 Abnormal uterine bleeding 1692777671 9100 N93.9 [id number] Rhonda Mccarty , [facility] [address],[facility] [place] [address] 08/17/2022 10:52:42 08/17/2022 11:32:57 Removal of intrauterine device 06687663 Z30.432 It was explained that she may [...] all the above instructio ns. Menopausal symptom 38037 002 N95.1 Will update labs to gain an idea of where she is with ovarian functionarpita harmon [id number] Rhonda Mccarty , [facility] [address],[place] [address] 12/23/2022 13:20:53 12/23/2022 13:40:45 Gynecologic examination 87440705 Z01.419 Z11.51 Take Calcium with Vitamin D 12-1500mg daily. Do monthly self breast exams. It is advised to get annual flu shot in the fall and she could obtain at [facility] or [facility] care clinic. If you haven't received the [...] [facility] PCPMammo ordered Screening mammography 24 181564 Z12.31 [id number] Rosie Valdez Emma [address] [address] 12/26/2023 16:57:08 12/26/2023 17:38:32 Gynecologic examination 34012573 Z01.419 Annual gynecologi lola exam performed. Patient [...] Doll Member ID Guarantor Name 12/16/2021 1 [facility] [id number] Melisa A Banuelos [id number] Melisa Lupe Banuelos 12/21/2021 1 [facility] [id number] Melisa A Banuelos [id number] Melisa A Banuelos 08/17/[address] [place] [address] [id number] Melisa A Banuelos [id number] Melisa A Banuelos 12/23/2022 1 [facility] [id number] Melisa A Banuelos [id number] Melisa A Banuelos 12/26/2023 1 [facility] [id number] Melisa A Banuelos [id number] Melisa Banuelos Notes Date Note Type Note Provider Name and Address Organization Details Recorded Time 12/16/2021 text/html 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 12/16/2021 16:10:02 08/17/2022 text/html Patient presents for IUD removal. YOVANNY Gambino [address], [place], [address], [facility] 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 12/23/2022 13:38:44 12/26/2023 text/html Annual GYNReport [...] exam. Patient denies concerns today. [facility] 12/27/2023 09:33:26 OBGyn Episode Ob Episode Information Episode Created Date Number of Fetuses Patient Bloodtype Patient rh Status Prepregnancy Weight lbs Domestic Partner Domestic Partner Phone Father Name Educational Administration Teacher Status 12/11/19 21 1 CLOSED Fetus Data First Name Last Name Admitted to NICU Weight (g) Sex Living Outcome Pediatric Complications Fetus ID Race Codes Race Delivery Type F Full Term [id number] Patricio Calculation Initial Patricio Date Initial Exam [...] Domestic Partner Domestic Partner Phone Father Name Educational Administration Teacher Status 12/11/19 21 1 CLOSED Fetus Data First Name Last Name Admitted to NICU Weight (g) Sex Living Outcome Pediatric Complications Fetus ID Race Codes Race Delivery Type F Full Term [id number] Primary Patricio Calculation Initial Patricio Date Initial [...] Domestic Partner Domestic Partner Phone Father Name Educational Administration Teacher Status 12/11/19 21 1 CLOSED Fetus Data First Name Last Name Admitted to NICU Weight (g) Sex Living Outcome Pediatric Complications Fetus ID Race Codes Race Delivery Type M Full Term [id number] Patricio Calculation Initial Patricio Date Initial Exam [...]
--- OUTSIDE RECORDS SUMMARY | 2024-04-05 13:53 | XMS_ITS | Referral Summary ---
Author Organization [facility] [employer] Address [facility] [facility] [place] [address] Care Team Providers Care Pneumatic Tester Name Role Phone Unavailable Primary Care Provider Unavailabl e Source Comments [facility] [employer],non-owned Affiliates and Associated Physician Practices is amultiple site organization consisting of ambulatory clinics and hospital sitesin [place], [place], [place] and [place]. This disclosure is being madepursuant to the Care Everywhere program and may not contain all information available regarding this patient. Last updated 17.[facility] [employer] Allergies No known active allergies Medications * [...] on file Medical Devices Implanted Type Area Government Affairs Researcher Device Identifier Shelf Expiration Date Model / Serial / Lot Nushield 4 X4 Cm Implanted:Qty: 1 on 12/03/2014 by Darek Herron MD at [facility] Right: Heel 10/21/2019 [id number] / / [id number]
--- OUTSIDE RECORDS SUMMARY | 2024-04-05 13:53 | XMS_ITS | Encounter Summary ---
Author Organization [facility] Address [facility] [place] [address] Care Team Providers Care Gold Leaf Roller Name Role Phone Unavailable Primary Care Provider Unavailabl e Encounter Details Date Type Department Care Team (Late st Contact Info) Description 11/30/2017 Lab Requisition [facility] [address] [facility] [place] [address] Kee [place] [address] Social History Tobacco Use Types [...] CDT) Case Report Dermatopathology Report ? Case: [id number] ? Authorizing Provider: ??Kee Rodriguez MD ?Collected: [...] mid back. The specimen consists of a 20y24a51va excision of skin. The specimen is serially sectioned and a financial sales representative section is submitted in cassette [...] determined by the Dermatopathology Laboratory at [facility]. These tests need not be, and therefore are not, approved by the [place] Food and Drug Administration. The tests are used for clinical purposes. Billing Codes Specimen Charges Stain Charges 86077 1 8 1:58 PM CDT DERMATOPATHOLOGY LABORATORY Embedded Images 8 1:58 PM CDT DERMATOPATHOLOGY LABORATORY Pathology/Cytolog y TISSUE SPECIMEN FROM SKIN / Unknown 11/29/2017 11/30/2017 11:56 AM CDT Kee Rodriguez MD LAB - PATHOLOGY/CYTO LOGY ORDERABLES DERMATOPATHOLOGY LABORATORY [facility] - Department of Dermatology [address] [place] [address] [address]th Floor Lab [address] [phone] documented in this encounter Visit Diagnoses Not on filedocumented in this encounter
--- OUTSIDE RECORDS SUMMARY | 2024-04-05 13:53 | XMS_ITS | Clinical Summary ---
Author Organization [facility] Address [facility] [facility] [place] [address] Care Team Providers Care Greenkeeper Name Role Phone Unavailable Primary Care Provider Unavailabl e Source Comments [facility],non-owned Affiliates and Associated Physician Practices is amultiple site organization consisting of ambulatory clinics and hospital sitesin [place], [place], [place] and [place]. This disclosure is being madepursuant to the Care Everywhere program and may not contain all information available regarding this patient. Last updated 17.[facility] Allergies No known active allergies Medications * [...] this topic Medical Devices Implanted Type Area Explosive Ordnance Manager Device Identifier Shelf Expiration Date Model / Serial / Lot Nushield 4 X4 Cm Implanted:Qty: 1 on 12/03/2014 by Darek Herron MD at [facility] Right: Heel 10/21/2019 [id number] Melisa Banuelos Lupe Personal/Famil y Self [id number] [id number]
--- OUTSIDE RECORDS SUMMARY | 2024-04-05 13:53 | XMS_ITS | Patient Health Summary ---
Author Organization [facility] Address [address] [place] [address] [place] [address] Care Team Providers Care Grinder Set Up Operator Internal Name Role Phone Unavailable Primary Care Provider Unavailabl e Note from [facility],non-owned Affiliates and Associated Physician Practices is amultiple site organization consisting of ambulatory clinics and hospital sitesin [place], [place], [place] and [place]. This disclosure is being madepursuant to the Care Everywhere program and may not contain all information available regarding this patient. Last updated 17.[facility] Allergies No known active allergies Medications * [...] AM CDT Medical Devices Implanted Type Area Biscuit Factory Worker Device Identifier Shelf Expiration Date Model / Serial / Lot Louisa 4 X4 Cm Implanted:Qty: 1 on 12/03/2014 by Darek Herron MD at [facility] Right: Heel 10/21/2019 [id number] / / [id number] Procedures * DERMATOPATHOLOGY(Performed 11/29/2017) * CARDIAC EKG [...] CDT) Case Report Dermatopathology Report ? Case: [id number] ? Authorizing Provider: ??Kee Rodriguez MD ?Collected: [...] mid back. The specimen consists of a [id number] excision of skin. The specimen is serially sectioned and a treasury representative section is submitted in cassette 1. [...] characteristic determined by the Dermatopathology Laboratory at [facility]. These tests need not be, and therefore are not, approved by the [place] Food and Drug Administration. The tests are used for clinical purposes. Billing Codes Specimen Charges Stain Charges 06464 1 1:58 PM CDT DERMATOPATHOLOGY LABORATORY Embedded Images 1:58 PM CDT DERMATOPATHOLOGY LABORATORY Pathology/Cytolog y TISSUE SPECIMEN FROM SKIN / Unknown 11/29/2017 11/30/2017 11:56 AM CDT Kee Rodriguez MD LAB - PATHOLOGY/CYTO LOGY ORDERABLES DERMATOPATHOLOGY LABORATORY [facility] - Department of Dermatology [address] [facility], [address] [place] [address], [facility] [phone] * LAB RESULTS ORDER (12/04/2014 8:42 PM [...] Case Report Surgical Pathology Report ? Case: [id number] ? Authorizing Provider: ??Darek Herron MD ?Collected: ? 12/03/2014 03:40 PM ? Ordering Location: ? [facility] ? Received: ?12/04/2014 08:18 AM ? Pathologist: ? Rachid Hills MD ? Specimen: ?Bone Cancellous ? 12/08/2014 1:52 PM CDT [facility] Final Diagnosis Cancellous bone, right, resection: - Degenerative changes MC/scs 12/08/2014 1:52 PM CDT [facility] Gross Description Received in a container [...] decalcification . JS/robby 12/08/2014 1:52 PM CDT [facility] Microscopic Description Sections show bone and periosteal connective tissue with degenerative changes. MC/scs 12/08/2014 1:52 PM CDT [facility] Pathology/Cytolo gy TRABECULAR BONE TISSUE STRUCTURE / Unknown 12/03/2014 3:40 PM CDT 12/04/2014 8:18 AM CDT Darek Herron MD LAB - PATHOLOGY/CYT OLOGY ORDERABLES [facility] [address] [place] [id number] * PERIPHERAL BLCOK (12/03/2014 3:29 PM CDT) [...] AM CDT) HCG Qual Urine Negative Negative [facility] POCT TESTING QC Verified Yes Yes [facility] POC T TESTING Urine specimen (specimen) URINE / Unknown 12/03/2014 10:42 AM CDT Darek Herron MD LAB - POINT OF CARE ORDERABLES [facility] POCT TESTING [address] [place] [address]
--- NOTE | 2024-04-05 14:07 | ECHO_ITS ---
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 Summary 1. Complete two-dimensional, color flow and Doppler transthoracic echocardiogram is performed. 2. Left ventricular chamber dimension is normal. 3. Left ventricular systolic function is normal, estimated at 65-70%. 4. The left ventricular diastolic function is grade I diastolic dysfunction. 5. E/e' 8 is minimally elevated. 6. Right atrial chamber dimension is mildly enlarged. 7. There is trace tricuspid valve regurgitation. 8. No pulmonary hypertension, estimated pulmonary arterial systolic pressure is 38 mmHg. 9. The aortic root size at the sinus of Valsalva is borderline dilated at 4.1 cm. 10. The prox ascending aorta size is moderately dilated at 4.5 cm. Left Ventricle E/e' 8 is minimally elevated. Left ventricular chamber dimension is normal. Left ventricular systolic function is normal, estimated at 65-70%. The left ventricular diastolic function is grade I diastolic dysfunction. Right Ventricle Right ventricular systolic function is normal and with normal TAPSE 2.2 cm. Right ventricular chamber dimension is normal. Left Atria Left atrial chamber dimension is normal. Right Atria Right atrial chamber dimension is mildly enlarged. Aortic Valve The aortic valve is bicuspid. There is no aortic valve stenosis. There is no aortic valve regurgitation. Pulmonic Valve There is no pulmonic regurgitation. Mitral Valve There is no mitral valve stenosis. There is no mitral valve regurgitation. Tricuspid Valve There is trace tricuspid valve regurgitation. No pulmonary hypertension, estimated pulmonary arterial systolic pressure is 38 mmHg. Pericardium/Pleural There is no pericardial effusion. Inferior Vena Cava Normal inferior vena cava with >50% collapse upon inspiration consistent with normal right atrial pressure, 5 mmHg. Aorta The aortic root size at the sinus of Valsalva is borderline dilated at 4.1 cm. The prox ascending aorta size is moderately dilated at 4.5 cm. Left Ventricular Outflow Tract Name Value Normal LVOT 2D LVOT Diameter 2.3 cm LVOT Doppler LVOT Peak Gradient 4 mmHg LVOT Mean Gradient 3 mmHg LVOT VTI 26 cm LVOT VTI/AV VTI Ratio 0.8 LVOT Stroke Volume 103 ml LVOT CO 7.6 l/min LVOT CI 4.3 l/min/m2 Pulmonic Valve Name Value Normal RVOT Doppler RVOT Peak Gradient 3 mmHg PV Doppler PV Peak Gradient 3 mmHg Mitral Valve Name Value Normal MV Doppler MV Peak Gradient 4 mmHg MV Mean Gradient 2 mmHg MV Decel Chase 461 cm/s2 MV PHT 55 ms MV Area (PHT) 4.0 cm2 4.0-5.0 MV Area (Cont Eq VTI) 3.5 cm2 MV Diastolic Function MV E Peak Velocity 88 cm/s MV A Peak Velocity 62 cm/s MV E/A 1.4 MV Decel Time 190 ms MV Annular TDI MV E/e' (Septal) 9.5 <=8.0 MV E/e' (Lateral) 8.2 <=8.0 MV E/e' (Average) 8.9 Tricuspid Valve Name Value Normal TV Regurgitation Doppler TR Peak Velocity 286 cm/s TR Peak Gradient 33 mmHg Estimated PAP/RSVP RA Pressure 5 mmHg <=5 PA Systolic Pressure 38 mmHg <36 RV Systolic Pressure 38 mmHg <36 Aorta Name Value Normal Ascending Aorta Ao Root Diameter (MM) 2.8 cm Ao Root Diam Index (MM) 1.6 cm/m2 Aortic Valve Name Value Normal AV Doppler AV Peak Velocity 163 cm/s AV Peak Gradient 7 mmHg AV Mean Gradient 4 mmHg AV VTI 33 cm AV Area (Cont Eq VTI) 3.1 cm2 >=3.0 AV Area (Cont Eq Ernesto) 2.5 cm2 AV Regurgitation 2D LVOT Area 4.0 cm2 AV Regurgitation Doppler AR Decel Time 1,972 ms AR Decel Chase 165 cm/s2 AR PHT 572 ms Ventricles Name Value Normal LV Dimensions 2D/MM IVS Diastolic Thickness (2D) 0.8 cm 0.6-1.0 LVID Diastole (2D) 4.6 cm 3.8-5.2 LVIW Diastolic Thickness (2D) 0.9 cm 0.6-0.9 LVID Systole (2D) 2.7 cm 2.2-3.5 LVOT Diameter 2.3 cm LV Mass (2D Cubed) 132.62 g 67.00-162.00 LV Mass Index (2D Cubed) 75 g/m2 43-95 Relative Wall Thickness (2D) 0.40 LV Fractional Shortening/Ejection Fraction 2D/MM LV Fractional Shortening (2D) 42 % 27-45 LV EF (2D Teicholz) 73 % 54-74 LV Diastolic Volume (4C MOD) 100 ml LV EF (4C MOD) 77 % LV Diastolic Volume (2C MOD) 109 ml LV EF (2C MOD) 64 % LV Diastolic Volume (BP MOD) 105 ml 46-106 LV Diastolic Volume Index (BP MOD) 59 ml/m2 29-61 LV Systolic Volume (BP MOD) 30 ml 14-42 LV Systolic Volume Index (BP MOD) 17 ml/m2 8-24 LV EF (BP MOD) 71 % 54-74 LV Diastolic Length (4C) 8.0 cm LV Systolic Length (4C) 6.0 cm LV Stroke Volume (4C MOD) 77 ml Atria Name Value Normal LA Dimensions LA Dimension (MM) 3.9 cm 2.7-3.8 LA Volume (4C A-L) 26 ml LA Volume (BP A-L) 44 ml RA Dimensions RA Area (4C) 18.7 cm2 <=18.0 Report Signatures
--- NOTE | 2024-04-05 14:58 | WPDPFTINT ---
PFT Procedure Performed PFT Procedure Performed Spirometry with Pre/Post Bronchodilator Plethysmography (Lung Vol) Diffusing Cap (DLCO) Flow Vol Loop PFT Interpretation This is a pulmonary function test with pre and post-bronchodilator spirometry, plethysmography and diffusing capacity. The test was performed and results interpreted in accordance with the 2019 and 2005 ATS/ERS Task Force guidelines respectively using the Global Lung Function Initiative-2012 reference equations. Patient demonstrated good effort and cooperation. Reproducibility criteria were met. The quality of the pre bronchodilator spirometry maneuver was Grade A and post bronchodilator spirometry maneuver was Grade A. Findings: Spirometry: The contour the inspiratory and expiratory flow tracing are normal. The pre bronchodilator FVC is 3.42 L, 108% predicted. The pre bronchodilator FEV1 is 2.75 L, 109% predicted. The pre bronchodilator FEV1: FVC ratio is 81%. The post bronchodilator FVC is 3.37 L, representing a 2% decrease. The post bronchodilator FEV1 is 2.90 L, representing a 5% increase. The post bronchodilator FEV1: FVC ratio is 86%. Plethysmography: The total lung capacity is 5.04 L, 103% predicted. The functional residual capacity is 3.19 L, 116% predicted. The residual volume is 1.62 L, 87% predicted. Diffusing capacity: The diffusing capacity unadjusted for hemoglobin and carboxyhemoglobin is 15.3, 71% predicted. The diffusing capacity adjusted for alveolar volume is 3.66, 80% predicted. Impression: The spirometry is normal without evidence of an obstructive abnormality. There is no significant improvement after inhaling a single dose of albuterol. The lung volumes are normal. The diffusing capacity is normal. There are no prior studies for comparison
== END 2024-04-05 13:48 | disposition home or self-care (01) ==
PROVIDERS: PCP Internal Medicine; Visit Provider Clinical Nurse Specialist
DX: I77.810 Thoracic aortic ectasia (principal)
CPT/HCPCS: 93306; 94060; 94726; 94729

== ENCOUNTER 2024-06-06 15:53 | Outpatient (CLI) | payer BC, SELFPAY ==
--- NOTE | ~2024-06-06 | MM_ITS ---
EXAMINATION: MM screening alejo BI w alonso HISTORY: Screening TECHNIQUE: Craniocaudal and mediolateral oblique 3-D tomosynthesis images were obtained and synthetic 2-D images were generated. CAD analysis was submitted and interpreted. COMPARISON: Comparison to multiple prior studies sequentially, with oldest reviewed study dated 2017. BREAST PARENCHYMAL COMPOSITION: Not dense: There are scattered areas of fibroglandular density. FINDINGS: There is no evidence of suspicious mass, calcification, or architectural distortion to sugg est malignancy in either breast. There has been no suspicious interval change. IMPRESSION: 1. No mammographic evidence of malignancy. 2. Recommend routine screening mammography in one year. BI-RADS Category 1: Negative Reviewed, dictated and finalized at location A.
--- OUTSIDE RECORDS SUMMARY | 2024-06-06 16:00 | XMS_ITS | Clinical Summary ---
Author Organization [facility] [employer] Address [address] [place] [address] Care Team Providers Care Marble Mechanic Helper Name Role Phone Unavailable Primary Care Provider Unavailabl e Source Comments [facility] [employer],non-owned Affiliates and Associated Physician Practices is amultiple site organization consisting of ambulatory clinics and hospital sitesin [place], [place], [place] and [place]. This disclosure is being madepursuant to the Care Everywhere program and may not contain all information available regarding this patient. Last updated 17.[facility] [employer] Allergies No known active allergies Medications * [...] 70 12/03/2014 5:53 PM CDT Temperature 37.2 C (98.9 F) 12/03/2014 4:57 PM CDT Respiratory Rate 16 12/03/2014 5:53 PM CDT [...] SCREENING 1965 LIPID TESTING 1965 MAMMOGRAM 1965 HIV SCREENING 11/23/1982 HEPATITIS C SCREENING 11/19/1985 DTAP/TDAP/TD VACCINES (1 - Tdap) 11/23/1986 HEPATITIS B VACCINE (1 of 3 - 19+ 3-dose series) 11/23/1986 PNEUMOCOCCAL VACCINE 50+ (1 of 1 - PCV) 11/23/2017 ZOSTER VACCINE (1 of 2) 11/23/2017 COVID-19 VACCINE (1 - 2023-2 5 season) 2023 DEPRESSION SCREENING 03/06/2024 INFLUENZA VACCINE (Season Ended) 2024 HIB VACCINE Aged Out No longer eligi ble based on patient's age to complete this topic HPV VACCINE Aged Out No longer eligi ble based on patient's age to complete this topic MENINGOCOCCAL (Group B) VACC INE SHARED DECISION-MAKING Aged Out No longer eligibl e based on patient's age to complete this topic MENINGOCOCCAL GROUPS A/C/Y/W VACCINE Aged Out No longer eligible b ased on patient's age to complete this topic Medical Devices Implanted Type Area Dredge Or Barge Shore Hand Device Identifier Shelf Expiration Date Model / Serial / Lot Nushield 4 X4 Cm Implanted:Qty: 1 on 12/03/2014 by Darek Herron MD at [facility] Right: Heel 10/21/2019 [id number] / [id number]
--- OUTSIDE RECORDS SUMMARY | 2024-06-06 16:00 | XMS_ITS | Data Portability ---
Author Organization [facility] Address [address] [place] [address] Care Team Providers Care Educational Psychology Teacher Name Role Phone ACE BEAUCHAMP Primary Care [...] recorded. Lab hormone panel, serum or plasma 2022 023 [facility] (Lab), [address] [place], [address], 3 06:56:22 hormone panel, serum or plasma 2021 022 [facility] (Lab), [address] [place], [address], 03:05:23 Referral None recorded. Procedures None recorded. Surgeries None recorded. Imaging MAMMO, screening, bilateral [address] [facility], [address], [address], [place], [address], 3 10:26:04 US, pelvis 2021 022 [email or web address] [place], [address], [place], [address], 22:18:15 US, transvagina l 2021 022 [email or web address] [address], [address], [place], [address], 22:18:15 US, pelvis, complete 2021 022 [address], [address], [place], [address], 2 16:04:59 Medication Orders None recorded. Patient TargetsNo targets [...] 561-2 1280 pg/mL 3rd Trime ster8 525-> 73598 pg/mL Not Available [facility] [address] [place], [address], 12/17/2021 03:05:20 12/17/19 22 12/16/2021 FSH, LH, ESTRA DIOL FSH 58.7 mIU/m L This assay was perfo rmed using [employer] ratio n reage nts and test kits. Value s obtai john with other assay metho ds or kits canno t be used [facility] . Femal es Folli cular : 3.5-1 2.5 mIU/m L Ovula tion: 4.7-2 1.5 mIU/m L Lutea l: 1.7-7 .7 mIU/m L Postm enopa use: 25.8- 134.8 mIU/m L Not Available [facility] [address] [place] [address], [address], 12/17/2021 03:05:20 12/17/19 22 12/16/2021 FSH, LH, ESTRA DIOL LH 26.7 mIU/m L This assay was perfo rmed using [employer] n reage nts and test kits. Value s obtai john with other assay metho ds or kits canno t be used [facility] . 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 Not Available [facility] [address] [place], [address], 12/22/2021 11:20:32 08/18/19 23 08/17/2022 FSH, LH, ESTRA DIOL estradiol <5.0 pg/mL This assay was perfo rmed using [employer] n reage nts and test kits. Value s obtai john with other assay metho ds or kits canno t be used [facility] . Femal e Estra diol Range s: Folli cular phase 12.4- 233 pg/mL Ovula tion phase 41.0- 398 pg/mL Lutea l phase 22.3- 341 pg/mL Postm enopa usal< 5-138 pg/mL Healt hy Pregn ant Women 1st Trime ster1 54-32 43 pg/mL 2nd Trime ster1 561-2 1280 pg/mL 3rd Trime ster8 525-> 67749 pg/mL Not Available [facility] (Lab) [address], [place], [address], 08/18/2022 06:56:22 08/18/19 23 08/17/2022 FSH, LH, ESTRA DIOL FSH 68.5 mIU/m L This assay was perfo rmed using [employer] n reage nts and test kits. Value s obtai john with other assay metho ds or kits canno t be used [facility] . Femal es Folli cular : 3.5-1 2.5 mIU/m L Ovula tion: 4.7-2 1.5 mIU/m L Lutea l: 1.7-7 .7 mIU/m L Postm enopa use: 25.8- 134.8 mIU/m L Not Available [facility] (Lab) [address] [facility], [place], [address], 08/18/2022 06:56:22 08/18/19 23 08/17/2022 FSH, LH, ESTRA DIOL LH 29.5 mIU/m L This assay was perfo rmed using [employer] n reage nts and test kits. Value s obtai john with other assay metho ds or kits canno t be used [facility] . 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 Not Available [facility] (Lab) [address], [place], [address], 12/28/2022 09:12:19 12/22/19 22 12/21/2021 US, pelvi s No observ ation record ed. [email or web address] [place] [address], [place], [address], 12/21/2021 15:49:53 12/22/1912/21/2021 US, trans vagin al No observ ation record ed. [email or web address], [place], [address], 12/21/2021 15:49:44 12/22/19 22 12/21/2021 US, pelvi s No observ ation record ed. [facility] [address], [place], [address], 01/02/2022 10:34:53 02/26/20 22 02/25/2022 MAMMO , scree antonia, bilat eral No observ ation record ed. [facility] [address], [place], [address], 03/04/2022 14:03:33 Result Notes None recorded. Problems Name Problem SNOMED Code Status Onset Date Resolution Date Notes Provider Name and Address Organization Details Recorded Time Finding of pattern of menstrua l cycle 139159232 Completed 201612/09/2020 Excessive and frequent menstruat ion with irregular cycle;Pra ctice ID: 0001 Marilou cotto [facility] 15:35:36 Polyp of corpus uteri 31433293 Completed 201612/09/2020 Polyp of corpus uteri;Pra ctice ID: 0001 Marilou cotto [facility] 15:35:43 Insertio n of intraute rine contrace ptive device Completed 201612/09/2020 Encounter for insertion of intrauter ine contracep tive device;Pr actice ID: 0001 Marilou Cabrera [facility] 15:35:38 Pregnanc y test negative [id number] Completed 201612/09/2020 Encounter for test, result negative; Practice ID: 0001 Marilou Cabrera [facility] 15:35:45 Surveill ance of contrace ption Completed 201612/09/2020 Encounter for surveilla nce of contracep tives, unspecifi ed;Practi ce ID: 0001 Marilou Cabrera [facility] 15:35:54 Cyst of ovary Completed 201612/09/2020 Unspecifi ed ovarian cyst, unspecifi ed side;Hiram rded Elsewhere : No Locati on: [facility] So urce: EHR Chron ic: N Practic e ID: 0001 Bill able Time: 10:02:07 AM Marilou Cabrera [facility] 15:35:34 Speciali zed medical examinat ion Completed 201312/09/2020 ROUTINE CRYPTOGRAPHIC VULNERABILITY ANALYST EXAMINATI ON;Record ed Elsewhere : No Locati on: [facility] So urce: EHR Chron ic: N Practic e ID: 0001 Bill able Time: 09:45:00 AM Marilou Cabrera [facility] 15:35:52 Screenin g for malignan t neoplasm of rectum Completed 201612/09/2020 Encounter for screening for malignant neoplasm of rectum;Re corded Elsewhere : No Locati on: [facility] So urce: EHR Chron ic: N Practic e ID: 0001 Bill able Time: 08:45:00 AM Marilou Cabrera [facility] 15:35:47 Screenin g for malignan t neoplasm of cervix Completed 201012/09/2020 Screening for malignant neoplasms of the cervix;Re corded Elsewhere : No Locati on: [facility] So urce: EHR Chron ic: N Practic e ID: 0001 Bill able Time: 02:00:00 PM Marilou [facility] 15:35:46 Pain in female genitali a Completed 201612/09/2020 Dysmenorr hea, unspecifi ed;Record ed Elsewhere : No Locati on: [facility] So urce: EHR Chron ic: N Practic e ID: 0001 Bill able Time: 08:15:00 AM Marilou Cabrera [facility] 15:35:41 Clinical finding Completed 201612/09/2020 Presence of (intraute rine) contracep tive device;Re corded Elsewhere : No Locati on: [facility] So urce: EHR Chron ic: N Practic e ID: 0001 Bill able Time: 09:15:00 AM Marilou [facility] 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 15:35:[address] Concept Completed 201512/09/2020 Encntr for general adult medical exam w/o abnormal findings; Recorded Elsewhere : No Locati on: [facility] So urce: EHR Chron ic: N Practic e ID: 0001 Bill able Time: 01:00:00 PM Mrailou Cabrera [facility] 15:35:49 Overwescl [facility] [id number] Completed 201312/09/2020 Overweigh t;Recorde d Elsewhere : No Locati on: [facility] So urce: EHR Chron ic: N Practic e ID: 0001 Bill able Time: 09:45:00 AM Marilou Cabrera [facility] 15:35:40 Atypical squamous cells of undeterm ined signific ance on cervical Papanico laou smear [id number] Completed 201112/09/2020 Papanicol aou smear of cervix with atypical squamous cells of undetermi john significa nce (ASC-US); Recorded Elsewhere : No Locati on: [facility] So urce: EHR Chron ic: N Practic e ID: 0001 Bill able Time: 02:45:00 PM Marilou Cabrera [facility] 15:35:31 Problem Notes None recorded. Procedures Surgical History Date Name Laterality Status Provider Name and Address Organization Details Recorded Time 08/18/19 23 IUD Removal completed Rhonda Mccarty LIL[facility]- [address], [place], [address], [place] [facility] 08/17/2022 11:19:35 02/26/20 22 Date of Last Mammogram completed Ciara Goyal [facility] 08/17/2022 10:58:51 12/17/19 22 Date of Last Pap Smear completed Rosie Valdez [facility] 12/26/2023 17:03:23 05/05/19 16 completed [facility] 12/10/2020 12:52:45 05/05/19 16 Date of Last Colonoscopy completed [facility] 12/10/2020 12:52:45 Caesarean Section completed [facility] 12/10/2020 12:52:52 Imaging Results Imaging Date Name Status LastModified by Organization Details LastModified Time 12/21/2021 US, pelvis completed [email or web address] [place] [address], [place], [address], 12/21/2021 15:49:53 12/21/2021 US, transvaginal completed [email or web address] [facility] [address], [place], [address], 12/21/2021 15:49:44 12/21/2021 US, pelvis completed [facility] [address], [place], [address], 01/02/2022 10:34:53 02/25/2022 MAMMO, screening, bilateral completed [facility] [address], [place], [address], 03/04/2022 14:03:33 Procedure Notes None recorded. Medical Equipment None Reported. Allergies Allergen ID Allergen Name Allergen Category Reaction Reaction Severity Criticality Documentation Date Start Date Code Code System Note Provider Name and Address Organization Details Recorded Time 36921 bacitraci n / neomycin / polymyxin B medicatio n rash moderate Not available 12/10/2020 37617 9 [facility] 12:52:17 Medications Name Sig Start Date [...] Prescrib ed Elsewher e: No Locat ion: [facility] odify By: audra pantoja DateTime : 04/07/19 10:02:07 AM Not Available Not Available Not Available Calcium 500 + D 500 mg-5 mcg (200 unit) tablet 06/06 completed Prescrib ed Elsewher e: Yes Loca tion: [facility] odify By: audra pantoja DateTime : 01/20/20 [...] Prescrib ed Elsewher e: No Locat ion: [facility] odify By: audra pantoja DateTime : 03/29/19 17 08:45:00 AM Not Available Not Available Not Available Multi Vitamin 9 mg iron/15 mL oral liquid 12/23 completed Prescrib ed Elsewher e: Yes Loca tion: [facility] odify By: enrique mazariegos DateTime : 01/29/20 13 10:15:00 AM Not Available Not Available Not Available Vitals Date Recorded Body height Body weight Systolic blood pressure Diastolic blood pressure Provider Name and Address Organization Details Last Updated DateTime 12/16/2021 160.02 cm 74000.26 g 122 mm[Hg] 76 mm[Hg] Marilou Cabrera [facility] 12/16/2021 15:24:29 Date Recorded Body height Body mass index (BMI) Body weight Systolic blood pressure Diastolic blood pressure Provider Name and Address Organization Details Last Updated DateTime 08/17/2022 160.02 cm 26.9 kg/m2 05007.04 g 103 mm[Hg] 67 mm[Hg] Ciara Prairie [facility] 3 10:58:40 Date Recorded Body height Body mass index (BMI) Body weight Systolic blood pressure Diastolic blood pressure Provider Name and Address Organization Details Last Updated DateTime 12/23/2022 160.02 cm 27.1 kg/m2 53485.63 g 97 mm[Hg] 60 mm[Hg] Ciara [place] [facility] 3 13:27:24 Date Recorded Body height Body mass index (BMI) Body weight Systolic blood pressure Diastolic blood pressure Provider Name and Address Organization Details Last Updated DateTime 12/26/2023 160.02 cm 27.3 kg/m2 25940.22 g 100 mm[Hg] 64 mm[Hg] Rosie Barrazaton [facility] 4 17:03:15 Social History Question Answer Notes LastModified by Organizat ion Details LastModified Time Tobacco Smoking Status Never Smoker Tia Paul cotto, [facility] 12/23/2022 13:22:48 Do You Have [...] Or The Highest Degree You Have Received? 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 [id number] Information not available 12/10/2020 Do You Use Any Illicit Or Recreational Drugs? No Information not available 12/10/2020 Do You Use Sunscreen Routinely? Yes Information not available 12/10/2020 Have You Used IV Drugs? No Information not available 12/10/2020 Sex: Unknown Functional Status Question Answer Note LastModified by Organizat ion Details LastModified Time Do you have difficulty walking or climbing stairs? No [email or web address] Information not available 12/23/2022 Are you able to walk? YESWOREST Information not available 12/10/2020 Are you able to care for yourself? Yes [email or web address] Information not available 12/23/2022 Do you have difficulty dressing or bathing? No [email or web address] Information not available 12/23/2022 What is your exercise level? Heavy Information not available 12/10/2020 Mental Status None recorded. Family History Relationship Description Onset Age of this Age Resolved Age Notes LastModified by Organization Details LastModified Time Father Heart disease Not available 2020 11:56:02 Father Non-Hodgkin' s lymphoma (clinical) [email or web address] Not available 12/25 16:57:54 Father Malignant tumor [...] SNOMED-CT Code Diagnosis ICD10 Code Diagnosis Note [id number] Rhonda Mccarty [facility] [address] [address] 12/10/2020 12:38:33 12/10/2020 13:19:57 Gynecologic examination 01526856 Z01.419 Take Calcium with Vitamin D 12-1500mg daily. Do monthly self breast exams. It is advised to get annual flu shot in the fall and she could obtain at [facility] or [facility] take care clinic. If [...] issues or concernsMa mmo completed for 2020 [id number] Rhonda Mccarty [facility] [address] [address] 12/16/2021 15:09:30 12/16/2021 16:31:19 Gynecologic examination 21260325 Z01.419 Z11.51 Take Calcium with Vitamin D 12-1500mg daily. Do monthly self breast exams. It is advised to get annual flu shot in the fall and she could obtain at [facility] or [facility] care clinic. If you haven't received [...] radiolMamm o ordered Abnormal u terine bleeding 4525002625 9100 N93.9 Will update imaging/la bsHas Mirena IUD placed 2016Had a random menses on it after returning from a trip to [facility].Edwin anne udpate on results & let her know if further f/u is required. [id number] Simran Cabrera [place] [address] [address] 12/21/2021 14:25:58 12/21/2021 15:26:06 Abnormal uterine bleeding 5218344984 9100 N93.9 [id number] Rhonda Mccarty , [facility] [address],[facility] [place] [address] 08/17/2022 10:52:42 08/17/2022 11:32:57 Removal of intrauterine device 33226797 Z30.432 It was explained that she may [...] all the above instructio ns. Menopausal symptom 37462 002 N95.1 Will update labs to gain an idea of where she is with ovarian functionarpita harmon [id number] Rhonda Mccarty , [facility] [address],[place] [address] 12/23/2022 13:20:53 12/23/2022 13:40:45 Gynecologic examination 02743959 Z01.419 Z11.51 Take Calcium with Vitamin D 12-1500mg daily. Do monthly self breast exams. It is advised to get annual flu shot in the fall and she could obtain at [facility] or [facility] care clinic. If you haven't received [...] PCPRout[facility] Labs PCPMammo ordered Screening mammography 24 889614 Z12.31 [id number] Rosie Valdez [place] [address] [address] 12/26/2023 16:57:08 12/26/2023 17:38:32 Gynecologic examination 14313608 Z01.419 Annual gynecologi lola exam performed. Patient [...] Doll Member ID Guarantor Name 12/16/2021 1 [facility] [id number] Melisa A Banuelos [id number] Melisa Lupe Banuelos 12/21/2021 1 [facility] [id number] Melisa A Banuelos [id number] Melisa A Banuelos 08/17/[address] [place] [address] [id number] Melisa A Banuelos [id number] Melisa A Banuelos 12/23/2022 1 [facility] [id number] Melisa A Banuelos [id number] Melisa A Banuelos 12/26/2023 1 [facility] [id number] Melisa A Banuelos [id number] Melisa Banuelos Notes Date Note Type Note Provider Name and Address Organization Details Recorded Time 12/16/2021 text/html Annual Upper Marker Post-MenopausalRep orted bypatient.Menopaus al Symptoms:no menopausal symptoms; normal vaginal lubrication Vaginal Bleeding:history of menopause having occurred; no history of post menopausal bleeding;unexplain ed vaginal bleeding(IUD Mirena 1 wks menses randomly after trip to [facility] after not having a cycle since 2017 [...] colonoscopy YOVANNY Gambino [address], [place], [address], [facility] 12/16/2021 16:10:02 08/17/2022 text/html Patient presents for IUD removal. YOVANNY Gambino [address], [place], [address], [facility] 08/17/2022 11:20:48 12/23/2022 text/html Annual Upper Marker Post-MenopausalRep orted bypatient.Menopaus al Symptoms:no menopausal symptoms; [...] colonoscopy YOVANNY Gambino [address], [place], [address], [facility] 12/23/2022 13:38:44 12/26/2023 text/html Annual GYNReport [...] exam. Patient denies concerns today. Rosie Valdez [facility] 12/27/2023 09:33:26 OBGyn Episode Ob Episode Information Episode Created Date Number of Fetuses Patient Bloodtype Patient rh Status Prepregnancy Weight lbs Domestic Partner Domestic Partner Phone Father Name Wild Life Manager Status 12/11/19 21 1 CLOSED Fetus Data First Name Last Name Admitted to NICU Weight (g) Sex Living Outcome Pediatric Complications Fetus ID Race Codes Race Delivery Type F Full Term [id number] Patricio Calculation Initial Patricio Date Initial Exam [...] Domestic Partner Domestic Partner Phone Father Name Wild Life Manager Status 12/11/19 21 1 CLOSED Fetus Data First Name Last Name Admitted to NICU Weight (g) Sex Living Outcome Pediatric Complications Fetus ID Race Codes Race Delivery Type F Full Term [id number] Primary Patricio Calculation Initial Patricio Date Initial [...] Domestic Partner Domestic Partner Phone Father Name Wild Life Manager Status 12/11/19 21 1 CLOSED Fetus Data First Name Last Name Admitted to NICU Weight (g) Sex Living Outcome Pediatric Complications Fetus ID Race Codes Race Delivery Type M Full Term [id number] Patricio Calculation Initial Patricio Date Initial Exam [...]
--- OUTSIDE RECORDS SUMMARY | 2024-06-06 16:00 | XMS_ITS | Continuity of Care Document ---
Author Organization [employer] Address [address] [place] [address] Phone Care Team Providers Care Scrap Preparer Name Role Phone Noemy RAJAN, Hannah Unavailable Unavailable Advance Directives Directive Yes / No Effective Date File Name No Information Encounters Encounter Description Practice Location Reason(s) For Visit Diagnoses Date Provider Providers Copied on Encounter [facility] [facility], [address], [place], [place], [id number], [place] tel:[phone] [facility] No Information Noemy Young. [address], [address], [place], [place], [address]. tel:[phone] Family History Family Member Type Diagnosis Age At Onset No Information Payers Payer name Insurance type Covered libertarian ID Authoriza tion(s) No Information Social History [...]
--- OUTSIDE RECORDS SUMMARY | 2024-06-06 16:00 | XMS_ITS | Encounter Summary ---
Author Organization [facility] Health Address [address] [place] [address] Care Team Providers Care River Rat Name Role Phone Unavailable Primary Care Provider Unavailabl e Encounter Details Date Type Department Care Team (Late st Contact Info) Description 11/30/2017 Lab Requisition [facility] Care DermPath Lab [address] [place] [address] Kee Rodriguez MD [address] [place] [address] Social History Tobacco Use Types [...] 12:00 AM CDT) Case Report Dermatopathology Report Case: [id number] Authorizing Provider: Kee Rodriguez MD Collected: 11/29/2017 12:00 AM Pathologist: Codie Jackson MD Received: 11/30/2017 11:56 AM Specimen: Skin, midline mid back 1:58 PM CDT DERMATOPATHOLOGY LABORATORY Final Diagnosis Specimen A. SKIN, midline mid back: EPIDERMOID CYST (L72.0) 1:58 PM CDT DERMATOPATHOLOGY LABORATORY Clinical History R/O SQ, cyst, other. 1:58 PM CDT DERMATOPATHOLOGY LABORATORY Gross Description Specimen A: Received is one formalin filled container labeled with the patient's name and designated midline mid back. The specimen consists of a [id number] excision of skin. The specimen is serially sectioned and a escrow representative section is submitted in cassette 1. Jar 1. 1:58 PM CDT DERMATOPATHOLOGY LABORATORY Microscopic Description Specimen A. SKIN, midline mid back: Within the dermis, there is a space lined by epithelium that resembles normal epidermis and the infundibular portion of the hair follicle. 1:58 PM CDT DERMATOPATHOLOGY LABORATORY Disclaimer An external and internal positive and negative controls are appropriate for the histochemical, immunohistochemical and immunofluorescence stain(s) in this case (if any), except where stated explicitly. The performance characteristics of the stain(s) cited in this report were developed and its performance characteristic determined by the Dermatopathology Laboratory at [facility]. These tests need not be, and therefore are not, approved by the [place] Food and Drug Administration. The tests are used for clinical purposes. Billing Codes Specimen Charges Stain Charges 77880 1 1:58 PM CDT DERMATOPATHOLOGY LABORATORY Embedded Images 1:58 PM CDT DERMATOPATHOLOGY LABORATORY Pathology/Cytolog y TISSUE SPECIMEN FROM SKIN / Unknown 11/29/2017 11/30/2017 11:56 AM CDT Kee Rodriguez MD LAB - PATHOLOGY/CYTO LOGY ORDERABLES DERMATOPATHOLOGY LABORATORY [facility] - Department of Dermatology [facility] [facility] [place] [address], [facility] [phone] documented in this encounter Visit Diagnoses Not on filedocumented in this encounter
== END 2024-06-06 15:54 | disposition home or self-care (01) ==
PROVIDERS: PCP Internal Medicine; Visit Provider Student in an Organized Health Care Education/Training Program
DX: Z12.31 Encounter for screening mammogram for malignant neoplasm of breast (principal)
CPT/HCPCS: 77063; 77067

== ENCOUNTER 2024-12-16 07:55 | Outpatient (CLI) | payer BC, SELFPAY ==
--- OUTSIDE RECORDS SUMMARY | 2011-07-13 09:46 | XMS_ITS | Continuity of Care Document ---
Author Organization [facility] Address [address] [place] [address] Phone Care Team Providers Care Bolt Sorter Name Role Phone Noemy RAJAN, Hannah Unavailable Unavailable Advance Directives Directive Yes / No Effective Date File Name No Information Encounters Encounter Description Practice Location Reason(s) For Visit Diagnoses Date Provider Providers Copied on Encounter [facility], [id number], [place], [place], [id number], [place] tel:[phone] [facility] No Information Noemy Young. [address], [address], [place], [place], [id number]. tel:[phone] Family History Family Member Type Diagnosis Age At Onset No Information Payers Payer name Insurance type Covered republican ID Authoriza tion(s) No Information Social History Type Description Quantity Date Captured Comments Sex Female Smoking Status No Information Chief Complaint And Reason For Visit No Information Reason For Referral Reason For Referral No Information History Of Present Illness Encounter Date Complaint History Of Prese nt Illness No Information Functional Status Date Functional Assessmen t No Information Instructions Date Instruction Additional Infor mation No Information Assessments Type Assessment Date No Information Patient Care Teams Name Effective Dates (start - stop) Status Members No Information
--- OUTSIDE RECORDS SUMMARY | 2024-12-16 08:03 | XMS_ITS | Clinical Summary ---
Author Organization [facility] Address [address] [place] [address] Care Team Providers Care Associate Professor Of Medicine Name Role Phone Unavailable Primary Care Provider Unavailabl e Source Comments [facility],non-owned Affiliates and Associated Physician Practices is amultiple site organization consisting of ambulatory clinics and hospital sitesin [place], [place], [place] and [place]. This disclosure is being madepursuant to the Care Everywhere program and may not contain all information available regarding this patient. Last updated 17.[facility] Allergies No known active allergies Medications * Be aware that medications may not be up to date on this document. Alwaysverify current medications with the patient. 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 Gender Identity Not on file Sexual Orientation [...] 10:59 AM CDT Height 160 cm (5' 3) 12/03/2014 10:59 AM CDT Body Mass Index [...] 11/23/2017 ZOSTER VACCINE (1 of 2) 11/23/2017 DEPRESSION SCREENING 03/06/2024 COVID-19 VACCINE (1 - 2023-2 5 season) 2024 INFLUENZA VACCINE (#1) 2024 HIB VACCINE Aged Out No longer [...] this topic Medical Devices Implanted Type Area Paint Roller Cover Machine Setter Device Identifier Shelf Expiration Date Model / Serial / Lot Nushield 4 X4 Cm Implanted:Qty: 1 on 12/03/2014 by Darek Herron MD at [facility] [place] Right: Heel 10/21/2019 [id number] / / [id number] Insurance [employer]
--- OUTSIDE RECORDS SUMMARY | 2024-12-16 08:03 | XMS_ITS | Clinical Summary ---
Author Organization [facility] Address [address] [place] [address] Care Team Providers Care Casino Attendant Name Role Phone DavidJuan Jose epperson Martinez Primary Care Provider Allergies Active Allergy Reactions Criticality Noted Date Comments Rilviwzz-Fvrkeauolo-Tvgqbmfnn Rash Medium 2024 Medications multivitamin,tx- minerals (VITAMINS AND MINERALS) tablet Take 1 tablet by mouth . 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 Rig ht Medical History Medical History Date Comments Diverticulosis Arthritis 2021 Family History Medical History Relation Name Comments Alcohol abuse Father Coronary artery disease Father Early Father Heart attack Father Heart disease Father Hyperlipidemia Father Hypertension Father Arthritis Mother Coronary artery disease Mother Diabetes Mother Hearing loss Mother Heart disease Mother Hyperlipidemia Mother Hypertension Mother Obesity Mother Stroke Mother Relation Name Status Comments Father Mother Alive Social History Tobacco Use Types Packs/Day Years Used Date Smoking Tobacco: Never Smokeless Tobacco: Never Tobacco Cessation:Counseling Given: Not Answered Comments Unknown Sex and Gender Information Value Date Recorded Sex Assigned at Not on file 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 Gender Identity Female 05/09/2018 2:54 PM CHIEF REVENUE OFFICER Sexual Orientation Not on file Obstetrics History Last Filed Vital Signs Vital Sign Reading Time Taken Comments Blood Pressure 106/71 06/14/2024 11:34 AM CDT Pulse 64 06/14/2024 11:34 AM CDT Temperature - - Respiratory Rate 16 04/16/2024 3:06 PM CHIEF REVENUE OFFICER Oxygen Saturation 99% 06/14/2024 11:34 AM CDT Inhaled Oxygen Concentration - - Weight 71.5 kg (157 lb 9.6 oz) 06/14/2024 11:34 AM CDT Height 160 cm (5' 3) 06/14/2024 11:34 AM CDT Body Mass Index 27.92 06/14/2024 11:34 AM CDT Plan of Treatment Health Maintenance Due Date Last Done Comments Breast Cancer Screening-Mammogram 1967 Cervical Cancer Screening 1967 Colon Cancer Screening-Colonoscopy 1967 Depression Screening 1967 Hepatitis C Screening 1967 DTaP/Tdap/Td Vaccine (1 - Tdap) 11/23/1978 Hepatitis B Screening 11/23/1985 Regular Well Visit/Exam 18-64 11/23/1985 Influenza Vaccine (#1) 2024 , 01/19/2023, 01/01/2022, Additional history exists Zoster Vaccine Completed 09/09/2021, 07/06/2021 Covid-19 Vaccine Completed 01/27/2024, , 01/01/2022, Additional history exists Pneumococcal vaccine <65 Aged Out No longer eligible based on patient's age to complete this topic Insurance [place] Care Teams Casino Attendant Relationship Specialty Start Date End Date Juan Jose Ho DO PCP - General Internal Medicine 05/09/18
--- OUTSIDE RECORDS SUMMARY | 2024-12-16 08:03 | XMS_ITS | Encounter Summary ---
Author Organization [facility] Address [address] [place] [address] Care Team Providers Care Care Transitions Manager Name Role Phone Unavailable Primary Care Provider Unavailabl e Encounter Details Date Type Department Care Team (Late st Contact Info) Description 11/30/2017 Lab Requisition [facility] Care DermPath Lab [address] [place] [address] Kee Rodriguez MD [address] [place] [address] Social History Tobacco Use Types Packs/Day Years Used Date Smoking Tobacco: Never Smokeless Tobacco: Never Alcohol Use Standard Drinks/Week Comments No 0 (1 standard drink = 0.6 oz pur e alcohol) Comments No Sex and Gender Information Value Date Recorded Sex Assigned at Not on file 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 Answer Date of Assessment Author No 12/03/2014 11:07 AM Cici Valderrama RN * Is person blind or have serious difficulty seeing? Answer Date of Assessment Author No 12/03/2014 11:07 AM Cici Valderrama RN * Does person have serious difficulty walking/climbing stairs? Answer Date of Assessment Author No 12/03/2014 11:07 AM Cici Valderrama RN * Does person have difficulty dressing/bathing? Answer Date of Assessment Author No 12/03/2014 11:07 AM Cici Valderrama RN * Does person have difficulty doing errands alone? Answer Date of Assessment Author No 12/03/2014 11:07 AM CDT Cici Noguera RN documented as of this encounter Mental Status * Does person have difficulty concentrating/remembering/making decisions? Answer Entry Date Author No 12/03/2014 11:07 AM CDT Cici Noguera RN documented in this encounter Plan of Treatment Not on file documented as of this encounter Procedures Procedure Name Priority Date/Time Associated Diagnosis Comments DERMATOPATHOLOGY Routine 11/29/2017 12:0 0 AM CDT documented in this encounter Results * DERMATOPATHOLOGY (11/29/2017 12:00 AM CDT) Case Report Dermatopathology Report Case: [id number] Authorizing Provider: Kee Rodriguez MD Collected: 11/29/2017 12:00 AM Pathologist: Codie Jackson MD Received: 11/30/2017 11:56 AM Specimen: Skin, midline mid back 1:58 PM CDT DERMATOPATHOLOGY LABORATORY Final Diagnosis Specimen A. SKIN, midline mid back: EPIDERMOID CYST (L72.0) 1:58 PM CDT DERMATOPATHOLOGY LABORATORY at 1358 CDT Clinical History R/O SQ, cyst, other. 1:58 PM CDT DERMATOPATHOLOGY LABORATORY Gross Description Specimen A: Received is one formalin filled container labeled with the patient's name and designated midline mid back. The specimen consists of a [id number] excision of skin. The specimen is serially sectioned and a enrollment representative section is submitted in cassette 1. [...] characteristic determined by the Dermatopathology Laboratory at [facility]. These tests need not be, and therefore are not, approved by the [place] Food and Drug Administration. The tests are used for clinical purposes. Billing Codes Specimen Charges Stain Charges 11744 1 8 1:58 PM CDT DERMATOPATHOLOGY LABORATORY Embedded Images 8 1:58 PM CDT DERMATOPATHOLOGY LABORATORY Pathology/Cytolog y TISSUE SPECIMEN FROM SKIN / Unknown 11/29/2017 11/30/2017 11:56 AM CDT Kee Rodriguez MD LAB - PATHOLOGY/CYTOLOGY ORD ERABLES Final Result DERMATOPATHOLOGY LABORATORY [facility] - Department of Dermatology [address] [place] [address] 5th Floor Lab [address] [phone] documented in this encounter Visit Diagnoses Not on filedocumented in this encounter
== END 2024-12-16 07:56 | disposition home or self-care (01) ==
LOC: ANHAUDIO 07:55
PROVIDERS: PCP Internal Medicine; Visit Provider Otolaryngology
DX: H69.93 Unspecified Eustachian tube disorder, bilateral (principal); H90.3 Sensorineural hearing loss, bilateral
CPT/HCPCS: 92557; 92567